=== PATIENT | female | born 1945 | race Caucasian/White ===

== ENCOUNTER 2017-03-17 05:41 | Observation (INO) ==
--- NOTE | 2017-03-17 06:01 | Emergency Department Note ---
Disposition Clinical Impression: Hypoglycemia, Dehydration Disposition: Admitted As Inpatient Condition: Good Referrals: Anthony Kim MD [Primary Care Provider] - Forms: Work/School Release, ED Satisfaction Letter Time of Disposition: 07:42 General Adult HPI - General Chief complaint: ED General Medical Stated complaint: Hypoglycemia Time Seen by Provider: 03/17/17 05:50 Source: EMS Mode of arrival: EMS Limitations: physical limitation Nursing Notes Reviewed: Yes Vital Signs Reviewed: Yes - History of Present Illness HPI Narrative: 71-year-old female transported the emergency department with a history that she was having some left-sided weakness and lethargy. Apparently they checked her blood sugar and it was 177. When EMS got there her blood sugar was 43. They gave her an amp of D50. Within 5 minutes she was fully awake alert oriented with no motor deficits. She has no complaints at this time. She states she feels fine. Onset (ago): Just [employer] Pain Scale: 0 Associated symptoms: Reports: denies other symptoms Treatments Prior to Arrival: other (D50 W) - Related Data Home Medications Medication Instructions Recorded Confirmed Acetaminophen [Tylenol] 325 mg PO Q6HR PRN 05/05/16 03/17/17 Allopurinol [Zyloprim] 150 mg PO DAILY 05/05/16 03/17/17 Aspirin [Lo-Dose Aspirin EC] 81 mg PO QAM 05/05/16 03/17/17 Atorvastatin [Lipitor] 10 mg PO HS 05/05/16 03/17/17 Baclofen [Lioresal] 10 mg PO TID PRN 05/05/16 03/17/17 Carbidopa/Levodopa ER 50/200 1 each PO BID 05/05/16 03/17/17 [Sinemet ER 50-200 TAB] Cyanocobalamin (Vitamin B-12) 1,000 mcg SL QAM 05/05/16 03/17/17 [Vitamin B-12] Fenofibrate 200 mg PO QAM 05/05/16 03/17/17 Furosemide [Lasix] 40 mg PO BID 05/05/16 03/17/17 HYDROcodone/Acet 5/325 mg [[place] 1 tab PO BID PRN 05/05/16 03/17/17 5-325 mg] Insulin ASPART [Novolog] 0 unit SQ TIDWM 05/05/16 03/17/17 Insulin DETEMIR [Levemir] 50 unit SQ BID 05/05/16 03/17/17 Loratadine [Claritin] 10 mg PO QAM 05/05/16 03/17/17 Losartan Potassium [Cozaar] 25 mg PO DAILY 05/05/16 03/17/17 Magnesium Oxide [Magnesium] 400 mg PO BID 05/05/16 03/17/17 Ondansetron HCl 4 mg PO Q4H PRN 05/05/16 03/17/17 Pantoprazole Sodium 40 mg PO BID 05/05/16 03/17/17 Renal Vitamin [Renal Caps Softgel] 1 mg PO DAILY 05/05/16 03/17/17 TraZODone 50 mg PO HS 05/05/16 03/17/17 Venlafaxine HCl [Effexor Xr] 75 mg PO HS 05/05/16 03/17/17 hydrOXYzine pamoate [HydrOXYzine 25 mg PO Q6H 05/05/16 03/17/17 Pamoate] Dextran 70/Hypromellose 1 drop OP BID 03/17/17 03/17/17 [Artificial Tears Eye Drops] Insulin Regular, Human [Novolin R] 6 unit SQ 03/17/17 Metoprolol [Lopressor] 25 mg PO DAILY 03/17/17 03/17/17 Oxymetazoline HCl [Nasal [place]] 1 spray NS QID 03/17/17 03/17/17 Psyllium Husk [Metamucil] 0.52 gm PO BID 03/17/17 03/17/17 Sennosides/Docusate Sodium 2 each PO BID 03/17/17 03/17/17 [Senna-S Tablet] Allergies Allergy/AdvReac Type Severity Reaction Status Date / Time aminophylline Allergy See Verified 05/05/16 15:49 Comments Benzoate Analogues Allergy See Verified 05/05/16 15:49 Comments clavulanic acid Allergy See Verified 05/05/16 15:49 Comments colistin [From Coly-Mycin S] Allergy See Verified 05/05/16 15:54 Comments disulfiram [From Antabuse] Allergy See Verified 05/05/16 15:54 Comments Ethanolamine Allergy See Verified 05/05/16 15:49 Comments ethylenediamine Allergy See Verified 05/05/16 15:54 Comments hydrocortisone Allergy See Verified 05/05/16 15:54 [From Coly-Mycin S] Comments [place] encephalitis vaccine Allergy See Verified 05/05/16 15:54 [From Je-Vax] Comments Medrysone [From Liquifilm] Allergy See Verified 05/05/16 15:54 Comments Merbromin Allergy See Verified 05/05/16 15:54 Comments Mercury (Elemental) Allergy See Verified 05/05/16 15:54 Comments Neomycin [From Coly-Mycin S] Allergy See Verified 05/05/16 15:54 Comments oxymetazoline Allergy See Verified 05/05/16 15:54 [From Kev-Synephrine Comments (phenylephrine)] phenylephrine Allergy See Verified 05/05/16 15:54 [From Kev-Synephrine Comments (phenylephrine)] Piperazine Allergy See Verified 05/05/16 15:49 Comments piroxicam Allergy See Verified 05/05/16 15:54 Comments Tetanus Vaccines and Toxoid Allergy See Verified 05/05/16 15:54 [Tetanus Vaccines & Toxoid] Comments thimerosal Allergy See Verified 05/05/16 15:49 Comments Thonzonium Allergy See Verified 05/05/16 15:54 [From Coly-Mycin S] Comments Triethylenemelamine Allergy See Verified 05/05/16 15:54 Comments Amoxicillin AdvReac Abdominal Verified 04/24/15 09:44 Pain diphenhydramine AdvReac Itching Verified 01/11/16 22:42 [From Benadryl] naproxen AdvReac Abdominal Verified 04/24/15 09:44 Pain sulfamethoxazole AdvReac Abdominal Verified 04/24/15 09:44 [From Bactrim] Pain trimethoprim [From Bactrim] AdvReac Abdominal Verified 04/24/15 09:44 Pain All systems ED: reviewed and negative except as stated. Constitutional: Denies: fever, chills Eyes: Denies: eye discharge, vision change ENT ED: Denies: ear pain, throat pain Cardiovascular: Denies: chest pain Respiratory: Denies: cough, dyspnea Gastrointestinal: Denies: abdominal pain, nausea, vomiting Genitourinary: Denies: urgency, dysuria, frequency Neurological: Reports: weakness, confusion. Denies: headache Past Medical History - Past Medical History Medical history: Reports: arthritis, atrial fibrillation, CHF, COPD, diabetes, hypertension, TIA, other Surgical history: Reports: Psychiatric history: Reports: no psych history - Social History Smoking Status: Former smoker Smokeless Tobacco Status: No Alcohol use: Reports: none Drug use: Reports: none, other Physical Exam - General Limitations: physical limitation General appearance: alert, in no apparent distress - Head Head exam: atraumatic, normocephalic - Eye Eye exam: Present: PERRL, EOMI. Absent: scleral icterus, conjunctival injection - ENT ENT exam: normal oropharynx, mucous membranes moist - Neck Neck exam: Present: normal inspection, full ROM, trachea midline. Absent: tenderness, lymphadenopathy - Respiratory Respiratory exam: Present: normal lung sounds bilaterally. Absent: respiratory distress, wheezes - Cardiovascular Cardiovascular exam: Present: regular rate, normal rhythm, normal heart sounds - Abdominal Exam Abdominal exam: Present: soft, Non-Tender, normal bowel sounds. Absent: organomegaly, mass - Extremities Exam Extremities exam: Present: normal inspection, full ROM, normal capillary refill - Back Exam Back exam: Absent: CVA tenderness (R), CVA tenderness (L) - Neurological Exam Neurological exam: Present: alert, oriented X3, CN II-XII intact, reflexes normal. Absent: motor sensory deficit - Psychiatric Psychiatric exam: Present: normal affect, normal mood - Skin Skin exam: Present: warm, dry, intact, normal color Course - Reevaluation(s) Reevaluation #1: Repeat blood sugars 31. She will be given another amp of dextrose. Since she is dehydrated and she is dropped her blood sugar twice I am going to have her observed. I suspect she is not eating and drinking well. I spoke with Dr. Kim. He is accepted her for observation admission. Time: 07:40 Vital Signs Temperature 98.1 F 03/17/17 05:44 Pulse Rate 65 03/17/17 05:44 Respiratory Rate 16 03/17/17 05:44 Blood Pressure 126/68 03/17/17 05:44 O2 Sat by Pulse Oximetry 98 03/17/17 05:44 Temperature 98.1 F 03/17/17 05:47 Pulse Rate 65 03/17/17 05:47 Respiratory Rate 16 03/17/17 05:47 Blood Pressure 126/68 03/17/17 05:47 O2 Sat by Pulse Oximetry 98 03/17/17 05:47 Oxygen Delivery Oxygen Delivery Room Air Medical Decision Making - Lab Data Lab results reviewed: Yes I reviewed the patient's lab results. Result diagrams: 03/17/17 06:17 03/17/17 06:17 Lab Results 03/17/17 03/17/17 03/17/17 Range/Units 05:46 06:17 06:17 WBC 5.4 (4.3-11.1) K/mcL RBC 3.39 L (3.82-4.97) M/mcL Hgb 11.3 L (11.5-15.4) g/dL Hct 33.4 L (35.3-44.9) % MCV 98.5 (83.0-100.0) fL MCH 33.3 (28.0-33.3) pg MCHC 33.8 (31.6-35.5) g/dL RDW 13.8 (11.5-14.5) % Plt Count 251 (140-400) K/mcL MPV 9.9 (9.4-12.4) fL Immature Gran % 0.4 (0-4) % Seg Neutrophils % 60.0 % Lymphocytes % 29.0 % Monocytes % 7.9 % Eosinophils % 2.0 % Basophils % 0.7 % Neutrophils # 3.2 (1.6-8.9) K/mcL Lymphocytes # 1.6 (0.6-4.6) K/mcL Monocytes # 0.4 (0.0-1.3) K/mcL Eosinophils # 0.1 (0.0-0.6) K/mcL Basophils # 0.0 (0.0-0.2) K/mcL Sodium 137 (136-145) mEq/L Potassium 3.4 L (3.5-4.5) mEq/L Chloride 95 L (98-109) mEq/L Carbon Dioxide 31 H (19-29) mEq/L BUN 62 H (7-20) mg/dL Creatinine 1.74 H (0.57-1.11) mg/dL Est GFR ( Amer) 35 L (> 60) Est GFR (Non-Af Amer) 29 L (> 60) BUN/Creatinine Ratio 36 H (6-26) Glucose 78 (70-99) mg/dL POC Glucose 91 H (58-89) Calculated Osmolality 300 (280-300) Calcium 9.9 (8.6-10.8) mg/dL Urine Color (Yellow) Urine Clarity (Clear) Urine pH (5.0-8.0) pH Units Ur Specific [place] (1.010-1.025) Urine Protein (Neg-Trace) mg/dL Urine Glucose (UA) (Normal) mg/dL Urine Ketones (Negative) mg/dL Urine Blood (Negative) Urine Nitrite (Negative) Urine Bilirubin (Negative) Urine Urobilinogen (Normal) mg/dL Ur Leukocyte Esterase (Negative) Ur Culture Indicated? (NO) 03/17/17 Range/Units 06:41 WBC (4.3-11.1) K/mcL RBC (3.82-4.97) M/mcL Hgb (11.5-15.4) g/dL Hct (35.3-44.9) % MCV (83.0-100.0) fL MCH (28.0-33.3) pg MCHC (31.6-35.5) g/dL RDW (11.5-14.5) % Plt Count (140-400) K/mcL MPV (9.4-12.4) fL Immature Gran % (0-4) % Seg Neutrophils % % Lymphocytes % % Monocytes % % Eosinophils % % Basophils % % Neutrophils # (1.6-8.9) K/mcL Lymphocytes # (0.6-4.6) K/mcL Monocytes # (0.0-1.3) K/mcL Eosinophils # (0.0-0.6) K/mcL Basophils # (0.0-0.2) K/mcL Sodium (136-145) mEq/L Potassium (3.5-4.5) mEq/L Chloride (98-109) mEq/L Carbon Dioxide (19-29) mEq/L BUN (7-20) mg/dL Creatinine (0.57-1.11) mg/dL Est GFR ( Amer) (> 60) Est GFR (Non-Af Amer) (> 60) BUN/Creatinine Ratio (6-26) Glucose (70-99) mg/dL POC Glucose (58-89) Calculated Osmolality (280-300) Calcium (8.6-10.8) mg/dL Urine Color Light Yellow (Yellow) Urine Clarity Clear (Clear) Urine pH 5.5 (5.0-8.0) pH Units Ur Specific [place] 1.010 (1.010-1.025) Urine Protein Negative (Neg-Trace) mg/dL Urine Glucose (UA) Normal (Normal) mg/dL Urine Ketones Negative (Negative) mg/dL Urine Blood Negative (Negative) Urine Nitrite Negative (Negative) Urine Bilirubin Negative (Negative) Urine Urobilinogen Normal (Normal) mg/dL Ur Leukocyte Esterase Negative (Negative) Ur Culture Indicated? NO (NO)
[2017-03-17 06:23] LABS: Basophils % 0.7 %; Eosinophils # 0.1 K/mcL (0.0-0.6); Hematocrit 33.4 % (35.3-44.9); Hemoglobin 11.3 g/dL (11.5-15.4); Immature Granulocytes % 0.4 % (0-4); Lymphocytes # 1.6 K/mcL (0.6-4.6); Mean Corpuscular HGB Conc 33.8 g/dL (31.6-35.5); Mean Corpuscular Hemoglobin 33.3 pg (28.0-33.3); Mean Corpuscular Volume 98.5 fL (83.0-100.0); Mean Platelet Volume 9.9 fL (9.4-12.4); Monocytes # 0.4 K/mcL (0.0-1.3); Monocytes % 7.9 %; Neutrophils # 3.2 K/mcL (1.6-8.9); Platelet Count 251 K/mcL (140-400); Red Blood Count 3.39 M/mcL (3.82-4.97); Red Cell Distribution Width 13.8 % (11.5-14.5)
[2017-03-17 06:38] LABS: Calcium 9.9 mg/dL (8.6-10.8); Potassium 3.4 mEq/L (3.5-4.5)
[2017-03-17] MEDS ORDERED: 0.9 % Sodium Chloride 1,000 ML IVC ONE (06:45)
[2017-03-17 07:18] LABS: Bilirubin,Urine Negative (Negative); Blood,Urine Negative (Negative); Clarity,Urine Clear (Clear); Glucose,Urine (UA) Normal (Normal); Ketones,Urine Negative (Negative); Leukocyte Esterase,Urine Negative (Negative); Nitrite,Urine Negative (Negative); PH,Urine 5.5 pH Units (5.0-8.0); Protein,Urine Negative (Neg-Trace); Urobilinogen,Urine Normal (Normal)
[2017-03-17 07:26] LABS: Color,Urine Light Yellow (Yellow)
[2017-03-17] MEDS ORDERED: *HR* Dextrose 50 % in Water (Vial) 50 ML VIAL IVP ONE (07:38)
[2017-03-17] MEDS ORDERED: Naloxone 0.4 MG/ML INJ IVP PRN (08:37)
[2017-03-17] MEDS ORDERED: Dextrose Gel 15 GM PO PRN ×2 (08:37)
[2017-03-17] MEDS ORDERED: Baclofen 10 MG TABLET PO PRN (08:37)
[2017-03-17] MEDS ORDERED: D5% in Water 1,000 ML IVC PRN (08:37)
[2017-03-17] MEDS ORDERED: *HR* Dextrose 50 % in Water (Syg) 50 ML SYRINGE IVP PRN (08:37)
[2017-03-17] MEDS ORDERED: Acetaminophen 325 MG TABLET PO PRN (08:37)
[2017-03-17] MEDS ORDERED: 0.9 % Sodium Chloride 1,000 ML IVC SCH (08:37)
[2017-03-17] MEDS ORDERED: hydrOXYzine pamoate 25 MG CAPSULE PO SCH (08:37)
[2017-03-17] MEDS ORDERED: Ondansetron ODT 4 MG TAB.RAPDIS PO PRN (08:37)
[2017-03-17] MEDS ORDERED: *HR* HYDROcodone/Acet 5/325 mg TABLET PO PRN (08:37)
[2017-03-17] MEDS ORDERED: Loratadine 10 MG TABLET PO SCH (09:00)
[2017-03-17] MEDS: Renal Vitamin 1 MG CAPSULE PO SCH (10:09)
[2017-03-17] MEDS: Cyanocobalamin (B-12) 1,000 MCG TABLET PO SCH (10:09)
[2017-03-17] MEDS: Aspirin Enteric Coated 81 MG Tablet PO SCH (10:09)
[2017-03-17] MEDS: Magnesium Oxide 400 MG TABLET PO SCH ×2 (10:09→22:45)
[2017-03-17] MEDS: Fenofibrate 54 MG TABLET PO SCH (10:09)
[2017-03-17] MEDS: Sennosides/Docusate Sodium TABLET PO SCH ×2 (10:12→22:44)
[2017-03-17] MEDS: Psyllium 1 PACKET POWD.PACK PO SCH ×2 (10:12→22:45)
[2017-03-17] MEDS: Carbidopa/Levodopa ER 50/200 TABLET PO SCH ×2 (10:12→22:45)
[2017-03-17] MEDS: Oxymetazoline Nasal SPRAY BOTTLE NS SCH ×4 (10:14→22:45)
[2017-03-17] MEDS: Artificial Tears SOLN 15 ML BOTTLE OP SCH ×2 (10:14→22:46)
[2017-03-17] MEDS ORDERED: 0.45 % Sodium Chloride w/KCl 20 MEQ/1,000 ML MLS IVC SCH ×2 (11:00→15:13)
[2017-03-17] MEDS: Insulin LISPRO 300 UNITS/3 ML VIAL SQ SCH ×2 (12:33→17:10)
--- NOTE | 2017-03-17 15:04 | Internal Med History&Physical ---
Date of Encounter: 03/17/17 Time of Encounter: 14:30 Assessment and Plan (1) Hypoglycemia Current visit: Yes Status: Acute Her Levemir has been held. Accu-Cheks will be checked before meals and at bedtime with sliding scale coverage given. (2) Dehydration Current visit: Yes Status: Acute She has been started on IV fluids. Repeat labs will be done in a.m. (3) CKD (chronic kidney disease) stage 3, GFR 30-59 ml/min Current visit: Yes Status: Chronic We will give IV fluids and check labs in a.m. Internal Medicine - H&P: HPI Chief complaint: Hypoglycemia, lethargy Admitted From: Long-term Nursing Facility Plans for Post Hospital Care: [facility] [employer] Care History of present illness: Ms. Barron is a 71 year old female who was sent to the emergency room after correction staff reported her to have left-sided weakness and lethargy. Emergency room reports states her blood was checked at the SNF and was reported to be 177. When EMS arrived blood sugar was rechecked and found to be 43. She was given an amp of D50 and reportedly had full recovery of alertness with no motor deficits after 5 minutes. She was evaluated in emergency room and blood sugar had decreased to 32. She was admitted to [facility] floor for ongoing care needs. She states she was diagnosed with DM 2 approximately 12 years ago. Her most recent hemoglobin A1c was 6.3% on 08/31/2016. She reports blood sugars are checked regularly at the correction. She reports her food intake is erratic at the correction. Her endocrine history is pertinent otherwise for hyperlipidemia. She denies thyroid disease. Past Med Surg Social Fam HX - Past Medical History Medical history: arthritis, atrial fibrillation, CHF, COPD, diabetes, hypertension, TIA, other Psychiatric history: no psych history - Past Surgical History Surgical History: - Social History Smoking Status: Former smoker Smokeless Tobacco Status: No Alcohol use: none Drug use: none, other Internal Medicine - H&P: Meds Acetaminophen [Tylenol] 325 mg PO Q6HR PRN 05/05/16 [History] Allopurinol [Zyloprim] 150 mg PO DAILY 05/05/16 [History] Aspirin [Lo-Dose Aspirin EC] 81 mg PO QAM 05/05/16 [History] Atorvastatin [Lipitor] 10 mg PO HS 05/05/16 [History] Baclofen [Lioresal] 10 mg PO TID PRN 05/05/16 [History] Carbidopa/Levodopa ER 50/200 [Sinemet ER 50-200 TAB] 1 each PO BID 05/05/16 [ History] Cyanocobalamin (Vitamin B-12) [Vitamin B-12] 1,000 mcg SL QAM 05/05/16 [History] Fenofibrate 200 mg PO QAM 05/05/16 [History] Furosemide [Lasix] 40 mg PO BID 05/05/16 [History] HYDROcodone/Acet 5/325 mg [[place] 5-325 mg] 1 tab PO BID PRN 05/05/16 [History] Insulin ASPART [Novolog] 0 unit SQ TIDWM 05/05/16 [History] Insulin DETEMIR [Levemir] 50 unit SQ BID 05/05/16 [History] Loratadine [Claritin] 10 mg PO QAM 05/05/16 [History] Losartan Potassium [Cozaar] 25 mg PO DAILY 05/05/16 [History] Magnesium Oxide [Magnesium] 400 mg PO BID 05/05/16 [History] Ondansetron HCl 4 mg PO Q4H PRN 05/05/16 [History] Pantoprazole Sodium 40 mg PO BID 05/05/16 [History] Renal Vitamin [Renal Caps Softgel] 1 mg PO DAILY 05/05/16 [History] TraZODone 50 mg PO HS 05/05/16 [History] Venlafaxine HCl [Effexor Xr] 75 mg PO HS 05/05/16 [History] hydrOXYzine pamoate [HydrOXYzine Pamoate] 25 mg PO Q6H 05/05/16 [History] Dextran 70/Hypromellose [Artificial Tears Eye Drops] 1 drop OP BID 03/17/17 [ History] Insulin Regular, Human [Novolin R] 6 unit SQ 03/17/17 [History] Metoprolol [Lopressor] 25 mg PO DAILY 03/17/17 [History] Oxymetazoline HCl [Nasal [place]] 1 spray NS QID 03/17/17 [History] Psyllium Husk [Metamucil] 0.52 gm PO BID 03/17/17 [History] Sennosides/Docusate Sodium [Senna-S Tablet] 2 each PO BID 03/17/17 [History] Allergies aminophylline Allergy (Verified 05/05/16 15:49) See Comments unknown Benzoate Analogues Allergy (Verified 05/05/16 15:49) See Comments unknown clavulanic acid Allergy (Verified 05/05/16 15:49) See Comments unknown colistin [From Coly-Mycin S] Allergy (Verified 05/05/16 15:54) See Comments disulfiram [From Antabuse] Allergy (Verified 05/05/16 15:54) See Comments Ethanolamine Allergy (Verified 05/05/16 15:49) See Comments unknown ethylenediamine Allergy (Verified 05/05/16 15:54) See Comments hydrocortisone [From Coly-Mycin S] Allergy (Verified 05/05/16 15:54) See Comments [place] encephalitis vaccine [From Je-Vax] Allergy (Verified 05/05/16 15:54) See Comments Medrysone [From Liquifilm] Allergy (Verified 05/05/16 15:54) See Comments Merbromin Allergy (Verified 05/05/16 15:54) See Comments Mercury (Elemental) Allergy (Verified 05/05/16 15:54) See Comments unknown Neomycin [From Coly-Mycin S] Allergy (Verified 05/05/16 15:54) See Comments oxymetazoline [From Kev-Synephrine (phenylephrine)] Allergy (Verified 05/05/16 15:54) See Comments phenylephrine [From Kev-Synephrine (phenylephrine)] Allergy (Verified 05/05/16 15:54) See Comments Piperazine Allergy (Verified 05/05/16 15:49) See Comments unknown piroxicam Allergy (Verified 05/05/16 15:54) See Comments Tetanus Vaccines and Toxoid [Tetanus Vaccines & Toxoid] Allergy (Verified 15:54) See Comments thimerosal Allergy (Verified 05/05/16 15:49) See Comments unknown Thonzonium [From Coly-Mycin S] Allergy (Verified 05/05/16 15:54) See Comments Triethylenemelamine Allergy (Verified 05/05/16 15:54) See Comments Amoxicillin Adverse Reaction (Verified 04/24/15 09:44) Abdominal Pain diphenhydramine [From Benadryl] Adverse Reaction (Verified 01/11/16 22:42) Itching naproxen Adverse Reaction (Verified 04/24/15 09:44) Abdominal Pain sulfamethoxazole [From Bactrim] Adverse Reaction (Verified 04/24/15 09:44) Abdominal Pain trimethoprim [From Bactrim] Adverse Reaction (Verified 04/24/15 09:44) Abdominal Pain All Systems PM: A 10-system review of systems was performed and is negative for pertinent findings except as documented above in the HPI. Review of systems: Gen.: He states her weight has been stable the past few months Cardiovascular: She has a history of hypertension and thinks she has had heart failure in the past. She is uncertain if she had a DVT many years ago. She denies CA or pulmonary embolism Respiratory: She quit smoking 35 years ago and has no known chronic lung disease. She states she had a "right lung nodule" seen in the past. She has ANGELINA and wears BiPAP at bedtime GI: She has diagnosis of GERD. She has had cholecystectomy. 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 She has chronic kidney disease and follows with Dr. Shanks Neurologic: She claims she was told she had a stroke from a past head CT report. She was unaware of its time of occurrence. She denies neurologic deficits. She denies seizures. She has diagnoses of Parkinson's disease and restless leg syndrome. She ambulates in the correction with a walker. Endocrine: As per history of present illness Hematology/oncology: She denies blood disorders, cancers or anemia Psychiatric: She has depression but denies anxiety other mental health issues [place] skeletal: She has history of gout and minimal arthritis. She denies other bone joint or muscle disorders. - Constitutional Vitals: Temp Pulse Resp BP Pulse Ox 97.9 F 71 18 109/71 99 03/17/17 10:16 03/17/17 10:16 03/17/17 10:16 03/17/17 10:16 03/17/17 10:16 Exam: Gen.: She is a well-developed overweight female lying in bed who appears in no acute distress HEENT: Head is atraumatic and normocephalic. Eyes: EOMI. There is no scleral icterus. Mouth: Mucosa is moist. Neck: Supple and nontender. There is no thyromegaly or adenopathy noted. Heart: Regular without murmurs gallops or ectopics Lungs: No wheezes or crackles are heard. Abdomen: Soft and nontender. No masses or guarding are noted. Extremities: There is no cyanosis edema or clubbing noted. Dorsalis pedis and posttibial pulses are 1-2 over 2 bilaterally. Neurologic: Mental status: She is talkative and a good historian. Cranial nerves: Smile is symmetric. Forehead wrinkles bilaterally. Tongue protrudes midline. EOMI. Motor: There is no pronator drift. Cerebellar: Finger to nose is intact bilaterally. Skin: Warm and dry Internal Med - H&P Results - Labs CBC & Chem 7: 03/17/17 06:17 03/17/17 06:17
[2017-03-17] MEDS: hydrOXYzine pamoate 25 MG CAPSULE PO SCH ×2 (17:12→22:50)
[2017-03-17] MEDS ORDERED: Venlafaxine XR (24 HR) 37.5 MG CAP.ER.24H PO SCH (21:00)
[2017-03-17] MEDS ORDERED: traZODone 50 MG TABLET PO SCH (21:00)
[2017-03-18] MEDS: Insulin LISPRO 300 UNITS/3 ML VIAL SQ SCH ×2 (00:23→07:28)
[2017-03-18 06:22] VITALS: BP 124/77
[2017-03-18] MEDS: hydrOXYzine pamoate 25 MG CAPSULE PO SCH (07:28)
[2017-03-18] MEDS: Magnesium Oxide 400 MG TABLET PO SCH (07:51)
[2017-03-18] MEDS: Psyllium 1 PACKET POWD.PACK PO SCH (07:51)
[2017-03-18] MEDS: Fenofibrate 54 MG TABLET PO SCH (07:52)
[2017-03-18] MEDS: Carbidopa/Levodopa ER 50/200 TABLET PO SCH (07:52)
[2017-03-18] MEDS: Cyanocobalamin (B-12) 1,000 MCG TABLET PO SCH (07:52)
[2017-03-18] MEDS: Renal Vitamin 1 MG CAPSULE PO SCH (07:52)
[2017-03-18] MEDS: Aspirin Enteric Coated 81 MG Tablet PO SCH (07:52)
[2017-03-18] MEDS: Sennosides/Docusate Sodium TABLET PO SCH (07:52)
[2017-03-18] MEDS: Oxymetazoline Nasal SPRAY BOTTLE NS SCH (07:56)
[2017-03-18] MEDS: Artificial Tears SOLN 15 ML BOTTLE OP SCH (07:57)
[2017-03-18 09:12] LABS: Calcium 9.9 mg/dL (8.6-10.8); Uric Acid 5.5 mg/dL (2.6-6.0)
[2017-03-18 09:34] LABS: Thyroid Stimulating Hormone 10.043 mcIU/mL (0.350-4.840)
--- NOTE | 2017-03-18 10:02 | Discharge Summary ---
Date of Encounter: 03/18/17 Time of Encounter: 09:50 - Discharge Diagnosis (1) Hypoglycemia Priority: Primary Status: Resolved (2) Dehydration Priority: Secondary Status: Acute (3) CKD (chronic kidney disease) stage 3, GFR 30-59 ml/min Priority: Secondary Status: Chronic (4) Hypothyroid Priority: Secondary Status: Acute Qualifiers: Hypothyroidism type: unspecified Qualified Code(s): E03.9 - Hypothyroidism , unspecified - Discharge Medications Prescriptions: Levothyroxine [Synthroid] 100 mcg PO 0630 365 Days Home Medications: Acetaminophen [Tylenol] 325 mg PO Q6HR PRN 05/05/16 [History] Allopurinol [Zyloprim] 150 mg PO DAILY 05/05/16 [History] Aspirin [Lo-Dose Aspirin EC] 81 mg PO QAM 05/05/16 [History] Atorvastatin [Lipitor] 10 mg PO HS 05/05/16 [History] Baclofen [Lioresal] 10 mg PO TID PRN 05/05/16 [History] Carbidopa/Levodopa ER 50/200 [Sinemet ER 50-200 Tab] 1 each PO BID 05/05/16 [ History] Cyanocobalamin (Vitamin B-12) [Vitamin B-12] 1,000 mcg SL QAM 05/05/16 [History] Fenofibrate 200 mg PO QAM 05/05/16 [History] HYDROcodone/Acet 5/325 mg [[place] 5-325 mg] 1 tab PO BID PRN 05/05/16 [History] Insulin ASPART [Novolog] 0 unit SQ TIDWM 05/05/16 [History] Losartan Potassium [Cozaar] 25 mg PO DAILY 05/05/16 [History] Magnesium Oxide [Magnesium] 400 mg PO BID 05/05/16 [History] Ondansetron HCl 4 mg PO Q4H PRN 05/05/16 [History] Renal Vitamin [Renal Caps Softgel] 1 mg PO DAILY 05/05/16 [History] TraZODone 50 mg PO HS 05/05/16 [History] Venlafaxine HCl [Effexor Xr] 75 mg PO HS 05/05/16 [History] hydrOXYzine pamoate [HydrOXYzine Pamoate] 25 mg PO Q6H 05/05/16 [History] Dextran 70/Hypromellose [Artificial Tears Eye Drops] 1 drop OP BID 03/17/17 [ History] Insulin Regular, Human [Novolin R] 6 unit SQ 03/17/17 [History] Metoprolol [Lopressor] 25 mg PO DAILY 03/17/17 [History] Psyllium Husk [Metamucil] 0.52 gm PO BID 03/17/17 [History] Sennosides/Docusate Sodium [Senna-S Tablet] 2 each PO BID 03/17/17 [History] Furosemide [Lasix] 40 mg PO DAILY #0 03/18/17 [Rx] Insulin DETEMIR [Levemir] 10 unit SQ BID #0 03/18/17 [Rx] Levothyroxine [Synthroid] 100 mcg PO 0630 365 Days 03/18/17 [Rx] Loratadine [Claritin] 10 mg PO QAM PRN #0 03/18/17 [Rx] Oxymetazoline HCl [Nasal [place]] 1 spray NS QID PRN #0 03/18/17 [Rx] Pantoprazole Sodium 40 mg PO DAILY #0 03/18/17 [Rx] Allergies/Adverse Reactions: Allergies aminophylline Allergy (Verified 05/05/16 15:49) See Comments unknown Benzoate Analogues Allergy (Verified 05/05/16 15:49) See Comments unknown clavulanic acid Allergy (Verified 05/05/16 15:49) See Comments unknown colistin [From Coly-Mycin S] Allergy (Verified 05/05/16 15:54) See Comments disulfiram [From Antabuse] Allergy (Verified 05/05/16 15:54) See Comments Ethanolamine Allergy (Verified 05/05/16 15:49) See Comments unknown ethylenediamine Allergy (Verified 05/05/16 15:54) See Comments hydrocortisone [From Coly-Mycin S] Allergy (Verified 05/05/16 15:54) See Comments Croatian encephalitis vaccine [From Je-Vax] Allergy (Verified 05/05/16 15:54) See Comments Medrysone [From Liquifilm] Allergy (Verified 05/05/16 15:54) See Comments Merbromin Allergy (Verified 05/05/16 15:54) See Comments Mercury (Elemental) Allergy (Verified 05/05/16 15:54) See Comments unknown Neomycin [From Coly-Mycin S] Allergy (Verified 05/05/16 15:54) See Comments oxymetazoline [From Kev-Synephrine (phenylephrine)] Allergy (Verified 05/05/16 15:54) See Comments phenylephrine [From Kev-Synephrine (phenylephrine)] Allergy (Verified 05/05/16 15:54) See Comments Piperazine Allergy (Verified 05/05/16 15:49) See Comments unknown piroxicam Allergy (Verified 05/05/16 15:54) See Comments Tetanus Vaccines and Toxoid [Tetanus Vaccines & Toxoid] Allergy (Verified 15:54) See Comments thimerosal Allergy (Verified 05/05/16 15:49) See Comments unknown Thonzonium [From Coly-Mycin S] Allergy (Verified 05/05/16 15:54) See Comments Triethylenemelamine Allergy (Verified 05/05/16 15:54) See Comments Amoxicillin Adverse Reaction (Verified 04/24/15 09:44) Abdominal Pain diphenhydramine [From Benadryl] Adverse Reaction (Verified 01/11/16 22:42) Itching naproxen Adverse Reaction (Verified 04/24/15 09:44) Abdominal Pain sulfamethoxazole [From Bactrim] Adverse Reaction (Verified 04/24/15 09:44) Abdominal Pain trimethoprim [From Bactrim] Adverse Reaction (Verified 04/24/15 09:44) Abdominal Pain Date of admission: 03/17/17 08:04 Primary care physician: Anthony Joyner M.D. - Patient Status Disposition: Transfer [facility] Condition: Good Functional capacity at discharge: uses cane/walker Overall status at discharge: patient is progressing back to baseline - Discharge Instructions - Diet and Activity Activity: resume usual activities as tolerated Diet: diabetic diet Hospital course: Ms. Barron is a 71 year old female who was sent to the emergency room after correction staff reported her to have left-sided weakness and lethargy. Emergency room reports states her blood was checked at the [facility] and was reported to be 177. When EMS arrived blood sugar was rechecked and found to be 43. She was given an amp of D50 and reportedly had full recovery of alertness with no motor deficits after 5 minutes. She was evaluated in emergency room and blood sugar had decreased to 32. She was admitted to [facility] for ongoing care needs. Initial orders were written by the emergency room physician. I saw her on March 17 and performed the history and physical. Her Levemir was held and she was given IV fluids. Her blood sugars return to an acceptable range. She will be restarted on Levemir at a lower dose of 15 units twice a day. Accu-Cheks with SSI will be done at the correction. Her BUN and creatinine improved to 43 and 1.38 with IV fluids. Her Lasix dose will be reduced on return to the correction. Her PCP can monitor her renal indices. TSH returned elevated at 10.043. She was started on Synthroid 100 g daily. On March 18 she felt back to her baseline and was stable for discharge to [facility]. She will follow with Dr. Joyner there. - Time Spent with Patient Total time spent providing and/or coordinating discharge services: - Constitutional Vitals: Temp Pulse Resp BP Pulse Ox 97.6 F 72 20 124/77 98 03/18/17 06:19 03/18/17 06:19 03/18/17 06:19 03/18/17 06:19 03/18/17 06:19
--- NOTE | 2017-03-18 10:16 | Physician Discharge Referral ---
ExtendedCare Referral Info Transfer To: [facility] Provider in Charge: Julio Provider in Charge after Transfer: PCP (Anthony Joyner M.D.) - Diagnosis (1) Hypoglycemia Priority: Primary Status: Resolved (2) Dehydration Priority: Secondary Status: Acute (3) CKD (chronic kidney disease) stage 3, GFR 30-59 ml/min Priority: Secondary Status: Chronic (4) Hypothyroid Priority: Secondary Status: Acute Prognosis: Fair Aware of Diagnosis: Patient, Family Aware of Prognosis: Patient, Family - Transfer Medications Prescriptions: Levothyroxine [Synthroid] 100 mcg PO 0630 365 Days Home Medications: Acetaminophen [Tylenol] 325 mg PO Q6HR PRN 05/05/16 [History] Allopurinol [Zyloprim] 150 mg PO DAILY 05/05/16 [History] Aspirin [Lo-Dose Aspirin EC] 81 mg PO QAM 05/05/16 [History] Atorvastatin [Lipitor] 10 mg PO HS 05/05/16 [History] Baclofen [Lioresal] 10 mg PO TID PRN 05/05/16 [History] Carbidopa/Levodopa ER 50/200 [Sinemet ER 50-200 Tab] 1 each PO BID 05/05/16 [ History] Cyanocobalamin (Vitamin B-12) [Vitamin B-12] 1,000 mcg SL QAM 05/05/16 [History] Fenofibrate 200 mg PO QAM 05/05/16 [History] HYDROcodone/Acet 5/325 mg [[place] 5-325 mg] 1 tab PO BID PRN 05/05/16 [History] Insulin ASPART [Novolog] 0 unit SQ TIDWM 05/05/16 [History] Losartan Potassium [Cozaar] 25 mg PO DAILY 05/05/16 [History] Magnesium Oxide [Magnesium] 400 mg PO BID 05/05/16 [History] Ondansetron HCl 4 mg PO Q4H PRN 05/05/16 [History] Renal Vitamin [Renal Caps Softgel] 1 mg PO DAILY 05/05/16 [History] TraZODone 50 mg PO HS 05/05/16 [History] Venlafaxine HCl [Effexor Xr] 75 mg PO HS 05/05/16 [History] hydrOXYzine pamoate [HydrOXYzine Pamoate] 25 mg PO Q6H 05/05/16 [History] Dextran 70/Hypromellose [Artificial Tears Eye Drops] 1 drop OP BID 03/17/17 [ History] Insulin Regular, Human [Novolin R] 6 unit SQ 03/17/17 [History] Metoprolol [Lopressor] 25 mg PO DAILY 03/17/17 [History] Psyllium Husk [Metamucil] 0.52 gm PO BID 03/17/17 [History] Sennosides/Docusate Sodium [Senna-S Tablet] 2 each PO BID 03/17/17 [History] Furosemide [Lasix] 40 mg PO DAILY #0 03/18/17 [Rx] Insulin DETEMIR [Levemir] 10 unit SQ BID #0 03/18/17 [Rx] Levothyroxine [Synthroid] 100 mcg PO 0630 365 Days 03/18/17 [Rx] Loratadine [Claritin] 10 mg PO QAM PRN #0 03/18/17 [Rx] Oxymetazoline HCl [Nasal [place]] 1 spray NS QID PRN #0 03/18/17 [Rx] Pantoprazole Sodium 40 mg PO DAILY #0 03/18/17 [Rx] Allergies/Adverse Reactions: Allergies aminophylline Allergy (Verified 05/05/16 15:49) See Comments unknown Benzoate Analogues Allergy (Verified 05/05/16 15:49) See Comments unknown clavulanic acid Allergy (Verified 05/05/16 15:49) See Comments unknown colistin [From Coly-Mycin S] Allergy (Verified 05/05/16 15:54) See Comments disulfiram [From Antabuse] Allergy (Verified 05/05/16 15:54) See Comments Ethanolamine Allergy (Verified 05/05/16 15:49) See Comments unknown ethylenediamine Allergy (Verified 05/05/16 15:54) See Comments hydrocortisone [From Coly-Mycin S] Allergy (Verified 05/05/16 15:54) See Comments French encephalitis vaccine [From Je-Vax] Allergy (Verified 05/05/16 15:54) See Comments Medrysone [From Liquifilm] Allergy (Verified 05/05/16 15:54) See Comments Merbromin Allergy (Verified 05/05/16 15:54) See Comments Mercury (Elemental) Allergy (Verified 05/05/16 15:54) See Comments unknown Neomycin [From Coly-Mycin S] Allergy (Verified 05/05/16 15:54) See Comments oxymetazoline [From Kev-Synephrine (phenylephrine)] Allergy (Verified 05/05/16 15:54) See Comments phenylephrine [From Kev-Synephrine (phenylephrine)] Allergy (Verified 05/05/16 15:54) See Comments Piperazine Allergy (Verified 05/05/16 15:49) See Comments unknown piroxicam Allergy (Verified 05/05/16 15:54) See Comments Tetanus Vaccines and Toxoid [Tetanus Vaccines & Toxoid] Allergy (Verified 15:54) See Comments thimerosal Allergy (Verified 05/05/16 15:49) See Comments unknown Thonzonium [From Coly-Mycin S] Allergy (Verified 05/05/16 15:54) See Comments Triethylenemelamine Allergy (Verified 05/05/16 15:54) See Comments Amoxicillin Adverse Reaction (Verified 04/24/15 09:44) Abdominal Pain diphenhydramine [From Benadryl] Adverse Reaction (Verified 01/11/16 22:42) Itching naproxen Adverse Reaction (Verified 04/24/15 09:44) Abdominal Pain sulfamethoxazole [From Bactrim] Adverse Reaction (Verified 04/24/15 09:44) Abdominal Pain trimethoprim [From Bactrim] Adverse Reaction (Verified 04/24/15 09:44) Abdominal Pain - Respiratory Orders Smoking Cessation: Smoking cessation has been advised. For more information, call the [place] Tobacco Quit Line at 9-643-GXBR-NOW. - Lab Orders Lab Orders: Other (include drug levels w/frequency) (CBC with differential, BMP , magnesium level in 1 week. Accu-Cheks with SSI before meals and at bedtime.) - Mobility Orders Ambulate - Rehabiliation Orders Rehab Potential: Fair - Diet Orders No Concentrated Sweets CERTIFICATION: I certify that the transfer of the above named patient to an Extended Care Facility is necessary for the continuing treatment of the diagnosis listed. The above information is true and accurate reflection of patient's current condition. Confidential - Redisclosure prohibited without a patient's written consent.
== END 2017-03-18 11:15 ==
LOC: INPPIK 05:41 → EMEROOPIK 05:41 → INPPIK 08:25
PROVIDERS: ADMIT Internal Medicine; ATTEND Internal Medicine

== ENCOUNTER 2017-08-18 08:20 | Inpatient (IN) ==
--- NOTE | 2017-08-18 08:42 | Emergency Department Note ---
Disposition Clinical Impression: Facial cellulitis Disposition: Admitted As Inpatient Condition: Fair Referrals: Anthony Joyner MD [Primary Care Provider] - Forms: ED Satisfaction Letter, Work/School Release Time of Disposition: 11:59 (Julio SMITHTed [facility]) Skin/Abscess/FB HPI Chief complaint: ED General Medical Stated complaint: swelling to right side of face Time Seen by Provider: 08/18/17 08:28 Source: patient Mode of arrival: ambulatory Limitations: physical limitation, age Nursing Notes Reviewed: Yes Vital Signs Reviewed: Yes HPI Narrative: Reportedly had shaved her face yesterday hypnic did now has an area of erythema then this morning when she woke up it was larger more swollen pale he has a pustule just outside the region as result she was sent to the ER to evaluate for possibility of need for IV antibiotics versus by mouth antibiotics admission versus discharge patient herself says her face hurts she denies O blurred vision double vision loss vision chest pain chest pressure palpitations cough cold or flulike symptoms other than the facial irritation she denies any additional complaints Pt Subjective Complaint: abscess/boil Onset (ago): day(s) (2) Tetanus Up to Date: yes Location: face Severity: moderate, severe Severity scale (1-10): 7 Quality: aching Consistency: constant Improves with: none Worsens with: none Associated symptoms: Reports: fever. Denies: chills, rigors, itching, nausea, vomiting, malaise, arthralgias, myalgias, cough, shortness of breath Treatments prior to arrival: attempted to drain pus at home Home Medications Medication Instructions Recorded Confirmed Acetaminophen [Tylenol] 325 mg PO Q6HR PRN 05/05/16 08/18/17 Allopurinol [Zyloprim] 150 mg PO DAILY 05/05/16 08/18/17 Aspirin [Lo-Dose Aspirin EC] 81 mg PO QAM 05/05/16 08/18/17 Atorvastatin [Lipitor] 10 mg PO HS 05/05/16 08/18/17 Baclofen [Lioresal] 10 mg PO TID PRN 05/05/16 08/18/17 Carbidopa/Levodopa ER 50/200 1 each PO TID 05/05/16 08/18/17 [Sinemet ER 50-200 Tab] Cyanocobalamin (Vitamin B-12) 1,000 mcg SL QAM 05/05/16 08/18/17 [Vitamin B-12] Fenofibrate 200 mg PO QAM 05/05/16 08/18/17 HYDROcodone/Acet 5/325 mg [[place] 1 tab PO BID PRN 05/05/16 08/18/17 5-325 mg] Insulin ASPART [Novolog] 0 unit SQ TIDWM 05/05/16 08/18/17 Losartan Potassium [Cozaar] 25 mg PO DAILY 05/05/16 08/18/17 Magnesium Oxide [Magnesium] 500 mg PO BID 05/05/16 08/18/17 Ondansetron HCl 4 mg PO Q4H PRN 05/05/16 08/18/17 Renal Vitamin [Renal Caps Softgel] 1 mg PO DAILY 05/05/16 08/18/17 Venlafaxine HCl [Effexor Xr] 225 mg PO HS 05/05/16 08/18/17 hydrOXYzine pamoate [HydrOXYzine 25 mg PO Q6H 05/05/16 08/18/17 Pamoate] Dextran 70/Hypromellose 1 drop OP BID 03/17/17 08/18/17 [Artificial Tears Eye Drops] Insulin Regular, Human [Novolin R] 6 unit SQ TID 03/17/17 08/18/17 Metoprolol [Lopressor] 25 mg PO DAILY 03/17/17 08/18/17 Sennosides/Docusate Sodium 2 each PO BID 03/17/17 08/18/17 [Senna-S Tablet] Ammonium Lactate [Lac-Hydrin Five] 226 gm TP BID 08/18/17 08/18/17 Calcium Polycarbophil [Fiber 625 mg PO BID 08/18/17 08/18/17 Laxative] Furosemide [Lasix] 20 mg PO DAILY 08/18/17 08/18/17 Previous Rx's Medication Instructions Recorded Insulin DETEMIR [Levemir] 10 unit SQ BID #0 03/18/17 Levothyroxine [Synthroid] 100 mcg PO 0630 365 Days tablet 03/18/17 Pantoprazole Sodium 40 mg PO DAILY #0 03/18/17 Allergies Allergy/AdvReac Type Severity Reaction Status Date / Time aminophylline Allergy See Verified 08/18/17 08:43 Comments Benzoate Analogues Allergy See Verified 08/18/17 08:43 Comments clavulanic acid Allergy See Verified 08/18/17 08:43 Comments colistin [From Coly-Mycin S] Allergy See Verified 08/18/17 08:43 Comments disulfiram [From Antabuse] Allergy See Verified 08/18/17 08:43 Comments Ethanolamine Allergy See Verified 08/18/17 08:43 Comments ethylenediamine Allergy See Verified 08/18/17 08:43 Comments hepatitis A virus vaccine Allergy See Verified 08/18/17 08:43 [From Twinrix] Comments hepatitis B virus vaccine, Allergy See Verified 08/18/17 08:43 recombin Comments [From Twinrix] hydrocortisone Allergy See Verified 08/18/17 08:43 [From Coly-Mycin S] Comments Uzbek encephalitis vaccine Allergy See Verified 08/18/17 08:43 [From Je-Vax] Comments Medrysone [From Liquifilm] Allergy See Verified 08/18/17 08:43 Comments Merbromin Allergy See Verified 08/18/17 08:43 Comments Mercury (Elemental) Allergy See Verified 08/18/17 08:43 Comments Neomycin [From Coly-Mycin S] Allergy See Verified 08/18/17 08:43 Comments oxymetazoline Allergy See Verified 08/18/17 08:43 [From Kev-Synephrine Comments (phenylephrine)] phenylephrine Allergy See Verified 08/18/17 08:43 [From Kev-Synephrine Comments (phenylephrine)] Piperazine Allergy See Verified 08/18/17 08:43 Comments piroxicam Allergy See Verified 08/18/17 08:43 Comments Tetanus Vaccines and Toxoid Allergy See Verified 08/18/17 08:43 [Tetanus Vaccines & Toxoid] Comments thimerosal Allergy See Verified 08/18/17 08:43 Comments Thonzonium Allergy See Verified 08/18/17 08:43 [From Coly-Mycin S] Comments Triethylenemelamine Allergy See Verified 08/18/17 08:43 Comments Amoxicillin AdvReac Abdominal Verified 08/18/17 08:43 Pain diphenhydramine AdvReac Itching Verified 08/18/17 08:43 [From Benadryl] naproxen AdvReac Abdominal Verified 08/18/17 08:43 Pain sulfamethoxazole AdvReac Abdominal Verified 08/18/17 08:43 [From Bactrim] Pain trimethoprim [From Bactrim] AdvReac Abdominal Verified 08/18/17 08:43 Pain All systems ED: reviewed and negative except as stated. Review of Systems: As Per HPI Constitutional: Reports: fever. Denies: chills, weakness Eyes: Denies: eye pain, eye discharge ENT ED: Denies: ear pain Cardiovascular: Denies: chest pain, palpitations Respiratory: Denies: cough, dyspnea Gastrointestinal: Denies: abdominal pain, nausea, vomiting Genitourinary: Denies: urgency, dysuria, frequency Musculoskeletal: Denies: back pain, neck pain Integumentary: Denies: rash, abrasion Neurological: Denies: headache, weakness Psychiatric: Denies: anxiety Endocrine: Denies: fatigue Hematological/Lymphatic: Denies: easy bleeding Allergic/Immunologic: Denies: facial swelling Past Medical History - Past Medical History Attestation: Yes The following information was validated with the patient. Source: patient, nursing notes reviewed Medical history: Reports: arthritis, atrial fibrillation, CHF, COPD, diabetes, hypertension, TIA, other Surgical history: Reports: Psychiatric history: Reports: no psych history - Social History Smoking Status: Former smoker Smokeless Tobacco Status: No Alcohol use: Reports: none Drug use: Reports: none, other Physical Exam - General Limitations: no limitations General appearance: alert, in no apparent distress, anxious, obese - Head Head exam: normocephalic, normal inspection - Expanded Head Exam 1 - Small pustule 2 - Scabbed area dried black center core 3 - The red erythematous A swelling and edema involving up to the nasolabial area across the labial area across the lips and of the chin area - Eye Eye exam: Present: normal appearance, PERRL, EOMI - ENT ENT exam: normal exam, normal oropharynx, mucous membranes moist, TM's normal bilaterally, normal external ear exam - Neck Neck exam: Present: normal inspection, full ROM, trachea midline - Chest Chest inspection: Present: normal inspection, symmetric chest wall rise - Respiratory Respiratory exam: Present: normal lung sounds bilaterally - Cardiovascular Cardiovascular exam: Present: regular rate, normal rhythm, normal heart sounds - Abdominal Exam Abdominal exam: Present: soft, Non-Tender, normal bowel sounds. Absent: mass, pulsatile mass - Extremities Exam Extremities exam: Present: normal inspection, full ROM, normal capillary refill. Absent: tenderness, pedal edema, joint swelling, calf tenderness - Expanded Lower Extremity Exam Neurovascular/Tendon exam: Present: normal capillary refill, normal fine/light touch Gait: observed and normal - Back Exam Back exam: Present: normal inspection, full ROM. Absent: muscle spasm - Neurological Exam Neurological exam: Present: alert, oriented X3, CN II-XII intact, normal gait - Psychiatric Psychiatric exam: Present: normal affect, normal mood - Skin Skin exam: Present: warm, dry, intact, normal color Course Course Narrative: Patient was seen and examined laboratory data ordered is a small abscess just to the upper aspect of the lab but we will do a CAT scan determine whether it is in sizable and drain there is an area just lateral and inferior to that on the right-hand side which appears to have a black center core which is probably the primary abscess site - Reevaluation(s) Reevaluation #1: Spoke with Dr. Kim and Dr. Joyner both in agreement Vital Signs Temperature 99.0 F 08/18/17 08:23 Pulse Rate 97 08/18/17 08:23 Respiratory Rate 18 08/18/17 08:23 Blood Pressure 129/60 08/18/17 08:23 O2 Sat by Pulse Oximetry 95 08/18/17 08:23 Temperature 101.8 F H 08/18/17 11:29 Pulse Rate 104 08/18/17 11:29 Respiratory Rate 18 08/18/17 11:29 Blood Pressure 188/84 08/18/17 11:29 O2 Sat by Pulse Oximetry 96 08/18/17 11:29 Oxygen Delivery Oxygen Delivery Room Air Skin/Abscess/Foreign Body - Differential Diagnosis Likely: abscess of skin or subcutaneous tissue, cellulitis - Medical Records Medical records reviewed: Yes I reviewed the patient's medical records. - Lab Data Lab results reviewed: Yes I reviewed the patient's lab results. Result diagrams: 08/18/17 09:10 08/18/17 09:10 Lab Results 08/18/17 08/18/17 08/18/17 Range/Units 09:10 09:10 09:10 WBC 15.2 H (4.3-11.1) K/mcL RBC 3.71 L (3.82-4.97) M/mcL Hgb 12.0 (11.5-15.4) g/dL Hct 35.5 (35.3-44.9) % MCV 95.7 (83.0-100.0) fL MCH 32.3 (28.0-33.3) pg MCHC 33.8 (31.6-35.5) g/dL RDW 13.1 (11.5-14.5) % Plt Count 241 (140-400) K/mcL MPV 9.5 (9.4-12.4) fL Immature Gran % 0.4 (0-4) % Seg Neutrophils % 92.5 % Lymphocytes % 2.8 % Monocytes % 4.0 % Eosinophils % 0.1 % Basophils % 0.2 % Neutrophils # 14.1 H (1.6-8.9) K/mcL Lymphocytes # 0.4 L (0.6-4.6) K/mcL Monocytes # 0.6 (0.0-1.3) K/mcL Eosinophils # 0.0 (0.0-0.6) K/mcL Basophils # 0.0 (0.0-0.2) K/mcL Sodium 136 (136-145) mEq/L Potassium 4.4 (3.5-4.5) mEq/L Chloride 97 L (98-109) mEq/L Carbon Dioxide 28 (19-29) mEq/L BUN 32 H (7-20) mg/dL Creatinine 1.17 H (0.57-1.11) mg/dL Est GFR ( Amer) 55 L (> 60) Est GFR (Non-Af Amer) 46 L (> 60) BUN/Creatinine Ratio 27 H (6-26) Glucose 175 H (70-99) mg/dL Calculated Osmolality 293 (280-300) Lactic Acid 1.7 (0.5-2.2) mmol/L Calcium 10.3 (8.6-10.8) mg/dL - Radiology Data Radiology results reviewed: Yes I reviewed the patient's radiology results. ITS Impressions Face CT 08/18/17 08:28 IMPRESSION: Right facial cellulitis. No abscess. D/ / Valentin García MD / Valentin García MD Interpreting Provider: Valentin García MD Critical Care Time Critical Care Time: No
[2017-08-18] MEDS ORDERED: 0.9 % Sodium Chloride 1,000 ML IVC SCH (08:45)
[2017-08-18] MEDS ORDERED: Vancomycin 1,000 MG in D5% in Water 250 ML IVPB ONE (08:45)
[2017-08-18] MEDS ORDERED: Clindamycin 600 MG/50 ML 600 MG/50 ML IV.SOLN IVPB ONE (08:45)
[2017-08-18 09:23] LABS: Basophils % 0.2 %; Eosinophils % 0.1 %; Hematocrit 35.5 % (35.3-44.9); Immature Granulocytes % 0.4 % (0-4); Lymphocytes # 0.4 K/mcL (0.6-4.6); Lymphocytes % 2.8 %; Mean Corpuscular HGB Conc 33.8 g/dL (31.6-35.5); Mean Corpuscular Hemoglobin 32.3 pg (28.0-33.3); Mean Corpuscular Volume 95.7 fL (83.0-100.0); Mean Platelet Volume 9.5 fL (9.4-12.4); Monocytes # 0.6 K/mcL (0.0-1.3); Platelet Count 241 K/mcL (140-400); Red Blood Count 3.71 M/mcL (3.82-4.97); Red Cell Distribution Width 13.1 % (11.5-14.5); Segmented Neutrophils % 92.5 %
[2017-08-18 09:39] LABS: Neutrophils # 14.1 K/mcL (1.6-8.9)
[2017-08-18 09:44] LABS: Calcium 10.3 mg/dL (8.6-10.8); Potassium 4.4 mEq/L (3.5-4.5)
[2017-08-18] MEDS ORDERED: *HR* Acetaminophen w/Cod 300-30 mg 1 TAB TABLET PO ONE (12:00)
[2017-08-18] MEDS ORDERED: Ibuprofen 400 MG TABLET PO PRN (13:29)
[2017-08-18] MEDS ORDERED: *HR* Dextrose 50 % in Water (Syg) 50 ML SYRINGE IVP PRN (13:29)
[2017-08-18] MEDS ORDERED: Naloxone 0.4 MG/ML INJ IVP PRN (13:29)
[2017-08-18] MEDS ORDERED: Baclofen 10 MG TABLET PO PRN (13:29)
[2017-08-18] MEDS ORDERED: Dextrose Gel 15 GM PO PRN ×2 (13:29)
[2017-08-18] MEDS ORDERED: Ondansetron ODT 4 MG TAB.RAPDIS SL PRN (13:29)
[2017-08-18] MEDS ORDERED: Acetaminophen 325 MG TABLET PO PRN ×2 (13:29→19:15)
[2017-08-18] MEDS ORDERED: D5% in Water 1,000 ML IVC PRN (13:29)
[2017-08-18] MEDS: 0.9 % Sodium Chloride 1,000 ML IVC SCH (14:00)
[2017-08-18] MEDS: Carbidopa/Levodopa ER 50/200 TABLET PO SCH ×2 (14:57→21:53)
[2017-08-18] MEDS: hydrOXYzine pamoate 25 MG CAPSULE PO SCH ×2 (14:57→21:53)
[2017-08-18] MEDS: Insulin LISPRO 300 UNITS/3 ML VIAL SQ SCH ×3 (14:57→23:28)
--- NOTE | 2017-08-18 19:19 | Internal Med History&Physical ---
Date of Encounter: 08/18/17 Time of Encounter: 18:45 Assessment and Plan (1) Facial cellulitis Current visit: Yes Status: Acute She was given IV vancomycin and clindamycin in emergency room. I will continue the vancomycin and give Ancef with lactobacillus. Recheck labs in a.m. (2) Hypertension Current visit: Yes Status: Acute Continue Cozaar and Lopressor Qualifiers: Hypertension type: essential hypertension Qualified Code(s): I10 - Essential (primary) hypertension (3) DM type 2 (diabetes mellitus, type 2) Current visit: Yes Status: Chronic Hemoglobin A1c was 6.3% on 08/31/2016. Will recheck in a.m. Continue Levemir and do Accu-Cheks with SSI. Qualifiers: Diabetes mellitus complication status: with kidney complications Diabetes mellitus complication detail: with chronic kidney disease Diabetes mellitus ferry terminal agent insulin use: with ferry terminal agent use Chronic kidney disease stage: stage 3 (moderate) Qualified Code(s): E11.22 - Type 2 diabetes mellitus with diabetic chronic kidney disease; N18.3 - Chronic kidney disease, stage 3 ( moderate); N18.3 - Chronic kidney disease, stage 3 (moderate); Z79.4 - MCC (current) use of insulin; Z79.4 - MCC (current) use of insulin; Z79.4 - terminal gauger (current) use of insulin; Z79.4 - MCC (current) use of insulin (4) CKD (chronic kidney disease) stage 3, GFR 30-59 ml/min Current visit: No Status: Chronic We will hold Lasix and give IV fluids. Recheck labs in a.m. (5) Hypothyroid Current visit: No Status: Acute Will check TSH in a.m. Qualifiers: Hypothyroidism type: unspecified Qualified Code(s): E03.9 - Hypothyroidism , unspecified Internal Medicine - H&P: HPI Chief complaint: Cellulitis with fever Admitted From: Emergency Dept Plans for Post Hospital Care: Home History of present illness: Ms. Barrno is a 71 year old female who was sent to the emergency room after nursing staff found her to have facial cellulitis. She reportedly was shaving her face at the half-way yesterday with a razor. She had no evidence of cellulitis prior to shaving. She was evaluated in the emergency room and found to have significant facial cellulitis. She was given IV antibiotics and admitted to MedSurg floor for ongoing care needs. Past Med Surg Social Fam HX - Past Medical History Medical history: arthritis, atrial fibrillation, CHF, COPD, diabetes, hypertension, TIA, other Psychiatric history: no psych history - Past Surgical History Surgical History: - Social History Smoking Status: Former smoker Smokeless Tobacco Status: No Alcohol use: none Drug use: none, other Internal Medicine - H&P: Meds Acetaminophen [Tylenol] 325 mg PO Q6HR PRN 05/05/16 [History] Allopurinol [Zyloprim] 150 mg PO DAILY 05/05/16 [History] Aspirin [Lo-Dose Aspirin EC] 81 mg PO QAM 05/05/16 [History] Atorvastatin [Lipitor] 10 mg PO HS 05/05/16 [History] Baclofen [Lioresal] 10 mg PO TID PRN 05/05/16 [History] Carbidopa/Levodopa ER 50/200 [Sinemet ER 50-200 Tab] 1 each PO TID 05/05/16 [ History] Cyanocobalamin (Vitamin B-12) [Vitamin B-12] 1,000 mcg SL QAM 05/05/16 [History] Fenofibrate 200 mg PO QAM 05/05/16 [History] HYDROcodone/Acet 5/325 mg [[place] 5-325 mg] 1 tab PO BID PRN 05/05/16 [History] Insulin ASPART [Novolog] 0 unit SQ TIDWM 05/05/16 [History] Losartan Potassium [Cozaar] 25 mg PO DAILY 05/05/16 [History] Magnesium Oxide [Magnesium] 500 mg PO BID 05/05/16 [History] Ondansetron HCl 4 mg PO Q4H PRN 05/05/16 [History] Renal Vitamin [Renal Caps Softgel] 1 mg PO DAILY 05/05/16 [History] Venlafaxine HCl [Effexor Xr] 225 mg PO HS 05/05/16 [History] hydrOXYzine pamoate [HydrOXYzine Pamoate] 25 mg PO Q6H 05/05/16 [History] Dextran 70/Hypromellose [Artificial Tears Eye Drops] 1 drop OP BID 03/17/17 [ History] Insulin Regular, Human [Novolin R] 6 unit SQ TID 03/17/17 [History] Metoprolol [Lopressor] 25 mg PO DAILY 03/17/17 [History] Sennosides/Docusate Sodium [Senna-S Tablet] 2 each PO BID 03/17/17 [History] Insulin DETEMIR [Levemir] 10 unit SQ BID #0 03/18/17 [Rx] Levothyroxine [Synthroid] 100 mcg PO 0630 365 Days tablet 03/18/17 [Rx] Pantoprazole Sodium 40 mg PO DAILY #0 03/18/17 [Rx] Ammonium Lactate [Lac-Hydrin Five] 226 gm TP BID 08/18/17 [History] Calcium Polycarbophil [Fiber Laxative] 625 mg PO BID 08/18/17 [History] Furosemide [Lasix] 20 mg PO DAILY 08/18/17 [History] 3 Allergy/AdvReac Type Severity Reaction Status Date / Time aminophylline Allergy See Verified 08/18/17 08:43 Comments Benzoate Analogues Allergy See Verified 08/18/17 08:43 Comments clavulanic acid Allergy See Verified 08/18/17 08:43 Comments colistin [From Coly-Mycin S] Allergy See Verified 08/18/17 08:43 Comments disulfiram [From Antabuse] Allergy See Verified 08/18/17 08:43 Comments Ethanolamine Allergy See Verified 08/18/17 08:43 Comments ethylenediamine Allergy See Verified 08/18/17 08:43 Comments hepatitis A virus vaccine Allergy See Verified 08/18/17 08:43 [From Twinrix] Comments hepatitis B virus vaccine, Allergy See Verified 08/18/17 08:43 recombin Comments [From Twinrix] hydrocortisone Allergy See Verified 08/18/17 08:43 [From Coly-Mycin S] Comments Palestinian encephalitis vaccine Allergy See Verified 08/18/17 08:43 [From Je-Vax] Comments Medrysone [From Liquifilm] Allergy See Verified 08/18/17 08:43 Comments Merbromin Allergy See Verified 08/18/17 08:43 Comments Mercury (Elemental) Allergy See Verified 08/18/17 08:43 Comments Neomycin [From Coly-Mycin S] Allergy See Verified 08/18/17 08:43 Comments oxymetazoline Allergy See Verified 08/18/17 08:43 [From Kev-Synephrine Comments (phenylephrine)] phenylephrine Allergy See Verified 08/18/17 08:43 [From Kev-Synephrine Comments (phenylephrine)] Piperazine Allergy See Verified 08/18/17 08:43 Comments piroxicam Allergy See Verified 08/18/17 08:43 Comments Tetanus Vaccines and Toxoid Allergy See Verified 08/18/17 08:43 [Tetanus Vaccines & Toxoid] Comments thimerosal Allergy See Verified 08/18/17 08:43 Comments Thonzonium Allergy See Verified 08/18/17 08:43 [From Coly-Mycin S] Comments Triethylenemelamine Allergy See Verified 08/18/17 08:43 Comments Amoxicillin AdvReac Abdominal Verified 08/18/17 08:43 Pain diphenhydramine AdvReac Itching Verified 08/18/17 08:43 [From Benadryl] naproxen AdvReac Abdominal Verified 08/18/17 08:43 Pain sulfamethoxazole AdvReac Abdominal Verified 08/18/17 08:43 [From Bactrim] Pain trimethoprim [From Bactrim] AdvReac Abdominal Verified 08/18/17 08:43 Pain All Systems PM: A 10-system review of systems was performed and is negative for pertinent findings except as documented above in the HPI. Review of systems: Review of systems from her February 2017 [facility] hospitalization were reviewed and revised as below. Gen.: Her weight has decreased from 91.3 kg on 03/18/2017 to 88.536 kg on admission now. Cardiovascular: She has a history of hypertension and thinks she has had heart failure in the past. She is uncertain if she had a DVT many years ago. She denies PR or pulmonary embolism Respiratory: She quit smoking approximately age 36 and has no known chronic lung disease. She states she had a "right lung nodule" seen in the past. She has ANGELINA and wears BiPAP at bedtime GI: She has diagnosis of GERD. She has had cholecystectomy. 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 She has chronic kidney disease and follows with Dr. Shanks Neurologic: She claims she was told she had a stroke from a past head CT report. She was unaware of its time of occurrence. She denies neurologic deficits. She denies seizures. She has diagnoses of Parkinson's disease and restless leg syndrome. She ambulates in the half-way with a walker. Endocrine: She was diagnosed with DM 2 approximately age 59. She has hyperlipidemia but denies thyroid disease. Hematology/oncology: She denies blood disorders, cancers or anemia Psychiatric: She has depression but denies anxiety other mental health issues Musk skeletal: She has history of gout and minimal arthritis. She denies other bone joint or muscle disorders. - Constitutional Vitals: Temp Pulse Resp BP Pulse Ox 99.4 F 108 18 135/63 93 08/18/17 16:21 08/18/17 16:21 08/18/17 16:21 08/18/17 16:21 08/18/17 16:21 Exam: Gen.: She is a well-developed well-nourished female lying in bed who appears in mild distress. HEENT: Head is atraumatic and normal cephalic. Eyes: EOMI. There is no scleral icterus. Mouth: Mucosa is moist. She has right lower face and chin erythema with a pustule near the upper right lateral lip area. There is some induration of the skin around the mouth. The erythema extends under the chin into the midline neck area. Heart: Regular without murmurs gallops or ectopics at rate approximately 100/m. Lungs: No wheezes or crackles are heard. Abdomen: Soft and nontender. No masses or guarding are noted. Extremities: There is no cyanosis. She has bilateral lower leg erythema with venous stasis and a single vesicle on the right lateral lower leg measuring approximately 2 cm maximum diameter. Dorsalis pedis and posterior tibial pulses are 1-2 over 2 bilaterally. Neurologic: Mental status: She is able to answer a few questions but seems lethargic. Cranial nerves: Smile is asymmetric with swelling and induration of the right lower face as per above. Forward wrinkles bilaterally. Tongue protrudes midline. EOMI. Motor: There is no pronator drift. Cerebellar: Finger to nose is intact bilaterally. Skin: Warm and dry Internal Med - H&P Results - Labs CBC & Chem 7: 08/18/17 09:10 08/18/17 09:10
[2017-08-18] MEDS ORDERED: NON-FORMULARY MEDICATION 1 EACH EACH (Insulin Detemir 10 UNIT) SQ SCH (21:00)
[2017-08-18] MEDS ORDERED: Ammonium Lactate 30 APPL/225 GM BOTTLE TP SCH (21:00)
[2017-08-18] MEDS: ceFAZolin 2,000 MG in Water for inj. (sterile) 20 ML IVP SCH (21:51)
[2017-08-18] MEDS: Venlafaxine XR (24 HR) 37.5 MG CAP.ER.24H PO SCH (21:52)
[2017-08-18] MEDS: *HR* HYDROcodone/Acet 5/325 mg TABLET PO PRN (21:53)
[2017-08-18] MEDS: Magnesium Oxide 400 MG TABLET PO SCH (21:53)
[2017-08-18] MEDS: Sennosides/Docusate Sodium TABLET PO SCH (21:53)
[2017-08-18] MEDS: Artificial Tears SOLN 15 ML BOTTLE OP SCH (21:55)
[2017-08-18] MEDS ORDERED: Vancomycin 500 MG in D5% in Water 250 ML IVPB ONE (22:00)
[2017-08-18] MEDS ORDERED: Vancomycin 750 MG in D5% in Water 250 ML IVPB ONE (22:00)
[2017-08-18] MEDS ORDERED: Vancomycin 750 MG in D5% in Water 250 ML IVPB SCH (23:00)
[2017-08-18] MEDS: Insulin DETEMIR 100 UNIT/ML X5UNITS SQ SCH (23:28)
[2017-08-19] MEDS ORDERED: Vancomycin 500 MG in D5% in Water 100 ML IVPB SCH (01:00)
[2017-08-19] MEDS: 0.9 % Sodium Chloride 1,000 ML IVC SCH ×3 (03:01→15:55)
[2017-08-19] MEDS: *HR* HYDROcodone/Acet 5/325 mg TABLET PO PRN ×2 (03:02→21:34)
[2017-08-19 03:40] LABS: mecA Methicillin-Resist Gene ***DETECTED*** (Not Detect)
[2017-08-19 03:41] LABS: Acinetobacter baumannii by PCR Not Detected (Not Detect); Candida albicans by PCR Not Detected (Not Detect); Candida glabrata by PCR Not Detected (Not Detect); Candida krusei by PCR Not Detected (Not Detect); Candida parapsilosis by PCR Not Detected (Not Detect); Candida tropicalis by PCR Not Detected (Not Detect); Enterococcus by PCR Not Detected (Not Detect); Escherichia coli by PCR Not Detected (Not Detect); Klebsiella oxytoca by PCR Not Detected (Not Detect); Klebsiella pneumoniae by PCR Not Detected (Not Detect); Pseudomonas aeruginosa by PCR Not Detected (Not Detect); Serratia marcescens by PCR Not Detected (Not Detect); Staphylococcus aureus by PCR ***DETECTED*** (Not Detect); Streptococcus agalactiae(B)PCR Not Detected (Not Detect); Streptococcus by PCR Not Detected (Not Detect); Streptococcus pneumoniae PCR Not Detected (Not Detect); Streptococcus pyogenes (A) PCR Not Detected (Not Detect)
[2017-08-19] MEDS: ceFAZolin 2,000 MG in Water for inj. (sterile) 20 ML IVP SCH ×2 (04:23→12:42)
[2017-08-19] MEDS: hydrOXYzine pamoate 25 MG CAPSULE PO SCH ×4 (04:24→18:50)
[2017-08-19 06:20] LABS: Basophils % 0.3 %; Hematocrit 32.9 % (35.3-44.9); Hemoglobin 11.1 g/dL (11.5-15.4); Immature Granulocytes % 0.9 % (0-4); Lymphocytes # 0.3 K/mcL (0.6-4.6); Lymphocytes % 4.3 %; Mean Corpuscular HGB Conc 33.7 g/dL (31.6-35.5); Mean Corpuscular Hemoglobin 32.2 pg (28.0-33.3); Mean Corpuscular Volume 95.4 fL (83.0-100.0); Mean Platelet Volume 9.9 fL (9.4-12.4); Monocytes # 0.3 K/mcL (0.0-1.3); Monocytes % 4.3 %; Neutrophils # 6.9 K/mcL (1.6-8.9); Platelet Count 185 K/mcL (140-400); Red Blood Count 3.45 M/mcL (3.82-4.97); Red Cell Distribution Width 13.2 % (11.5-14.5); Segmented Neutrophils % 90.2 %
[2017-08-19 06:37] LABS: BUN/Creatinine Ratio 20 (6-26); Blood Urea Nitrogen 17 mg/dL (7-20); Calcium 9.5 mg/dL (8.6-10.8); Carbon Dioxide 24 mEq/L (19-29); Chloride 100 mEq/L (98-109); Glucose 173 mg/dL (70-99); Magnesium 1.3 mg/dL (1.6-2.6); Osmolality,Calculated 282 (280-300); Potassium 3.8 mEq/L (3.5-4.5); Sodium 133 mEq/L (136-145); eGFR For African Americans > 60 (> 60); eGFR For Non-African Americans > 60 (> 60)
[2017-08-19 06:59] LABS: Thyroid Stimulating Hormone 0.239 mcIU/mL (0.350-4.840)
[2017-08-19] MEDS: Cyanocobalamin (B-12) 1,000 MCG TABLET PO SCH (08:23)
[2017-08-19] MEDS: Aspirin Enteric Coated 81 MG Tablet PO SCH (08:23)
[2017-08-19] MEDS: Magnesium Oxide 400 MG TABLET PO SCH ×3 (08:23→21:33)
[2017-08-19] MEDS: Sennosides/Docusate Sodium TABLET PO SCH ×2 (08:23→21:35)
[2017-08-19] MEDS: Fenofibrate 54 MG TABLET PO SCH (08:23)
[2017-08-19] MEDS: Renal Vitamin 1 MG CAPSULE PO SCH (08:23)
[2017-08-19] MEDS: Carbidopa/Levodopa ER 50/200 TABLET PO SCH ×3 (08:23→21:33)
[2017-08-19] MEDS: Insulin LISPRO 300 UNITS/3 ML VIAL SQ SCH ×6 (08:29→22:34)
[2017-08-19] MEDS: Artificial Tears SOLN 15 ML BOTTLE OP SCH ×2 (08:29→22:34)
[2017-08-19] MEDS ORDERED: Furosemide 20 MG TABLET PO SCH (09:00)
[2017-08-19 09:53] LABS: Hemoglobin A1C 6.3 %
[2017-08-19] MEDS ORDERED: Vancomycin 1,250 MG in D5% in Water 250 ML IVPB SCH ×2 (10:00→23:00)
[2017-08-19] MEDS: Insulin DETEMIR 100 UNIT/ML X5UNITS SQ SCH ×2 (12:39→22:34)
--- NOTE | 2017-08-19 12:45 | Internal Med Progress Note ---
Date of Encounter: 08/19/17 Time of Encounter: 12:35 - Assessment and plan (1) Facial cellulitis Current Visit: Yes Status: Acute Assessment and plan: August 19. Continue IV vancomycin but discontinue Ancef. WBC has normalized (2) Hypertension Current Visit: Yes Status: Acute Assessment and plan: August 19. Continue Cozaar and Lopressor Qualifiers: Hypertension type: essential hypertension Qualified Code(s): I10 - Essential (primary) hypertension (3) DM type 2 (diabetes mellitus, type 2) Current Visit: Yes Status: Chronic Assessment and plan: August 19. Hemoglobin A1c was 6.3%. Continue Levemir and Accu-Cheks with SSI. Qualifiers: Diabetes mellitus complication status: with kidney complications Diabetes mellitus complication detail: with chronic kidney disease Diabetes mellitus local company intermodal truck driver insulin use: with local company intermodal truck driver use Chronic kidney disease stage: stage 3 (moderate) Qualified Code(s): E11.22 - Type 2 diabetes mellitus with diabetic chronic kidney disease; N18.3 - Chronic kidney disease, stage 3 ( moderate); N18.3 - Chronic kidney disease, stage 3 (moderate); Z79.4 - terminal worker (current) use of insulin; Z79.4 - terminal worker (current) use of insulin; Z79.4 - terminal worker (current) use of insulin; Z79.4 - terminal worker (current) use of insulin (4) CKD (chronic kidney disease) stage 3, GFR 30-59 ml/min Current Visit: No Status: Chronic Assessment and plan: August 19. Azotemia has completely resolved with BUN and creatinine being 17 and 0.8 respectively today. Continue present management. (5) Hypothyroid Current Visit: No Status: Acute Assessment and plan: August 19. TSH has returned suppressed at 0.239. We will decrease Synthroid. Qualifiers: Hypothyroidism type: unspecified Qualified Code(s): E03.9 - Hypothyroidism , unspecified (6) Hypomagnesemia Current Visit: Yes Status: Acute Assessment and plan: August 19. Magnesium level returned low at 1.3. Will increase magnesium oxide and monitor labs. - Subjective Interval history: August 19. She has no new complaints. She states she does not feel improved overall. - Constitutional Vitals: Temp Pulse Resp BP Pulse Ox 102.2 F H 94 20 128/68 94 08/19/17 09:00 08/19/17 09:00 08/19/17 09:00 08/19/17 09:00 08/19/17 09:00 Exam: She is resting comfortably in bed and appears slightly more awake than yesterday. Her affect is more bright and cheerful. There is no significant change in the erythema of her face. I reviewed her medications and lab results including blood culture showing MRSA. Internal Medicine: Result - Labs CBC & Chem 7: 08/19/17 05:26 08/19/17 05:26 Labs: Short CBC 08/19/17 Range/Units 05:26 WBC 7.6 (4.3-11.1) K/mcL Hgb 11.1 L (11.5-15.4) g/dL Hct 32.9 L (35.3-44.9) % Plt Count 185 (140-400) K/mcL Neutrophils # 6.9 (1.6-8.9) K/mcL BMP 08/19/17 05:26 Sodium 133 L Potassium 3.8 Chloride 100 Carbon Dioxide 24 BUN 17 D Creatinine 0.83 Glucose 173 H Calcium 9.5 Consult Discharge Plan - Plan Referrals: Anthony Joyner MD [Primary Care Provider] - 1 week
[2017-08-19] MEDS: Venlafaxine XR (24 HR) 37.5 MG CAP.ER.24H PO SCH (21:33)
[2017-08-20] MEDS: hydrOXYzine pamoate 25 MG CAPSULE PO SCH ×3 (03:38→14:27)
[2017-08-20] MEDS: *HR* HYDROcodone/Acet 5/325 mg TABLET PO PRN (03:38)
[2017-08-20] MEDS ORDERED: *HR* Enoxaparin 40 MG/0.4 ML SYRINGE SQ SCH (06:00)
[2017-08-20 06:47] LABS: Basophils % 0.5 %; Hematocrit 29.7 % (35.3-44.9); Hemoglobin 10.1 g/dL (11.5-15.4); Immature Granulocytes % 0.5 % (0-4); Lymphocytes # 0.6 K/mcL (0.6-4.6); Lymphocytes % 14.6 %; Mean Corpuscular Hemoglobin 32.2 pg (28.0-33.3); Mean Corpuscular Volume 94.6 fL (83.0-100.0); Mean Platelet Volume 9.5 fL (9.4-12.4); Monocytes # 0.3 K/mcL (0.0-1.3); Monocytes % 8.3 %; Platelet Count 143 K/mcL (140-400); Red Blood Count 3.14 M/mcL (3.82-4.97); Red Cell Distribution Width 13.2 % (11.5-14.5); Segmented Neutrophils % 75.1 %
[2017-08-20 07:06] LABS: BUN/Creatinine Ratio 22 (6-26); Blood Urea Nitrogen 16 mg/dL (7-20); Calcium 8.9 mg/dL (8.6-10.8); Carbon Dioxide 24 mEq/L (19-29); Chloride 104 mEq/L (98-109); Glucose 59 mg/dL (70-99); Osmolality,Calculated 281 (280-300); Potassium 3.4 mEq/L (3.5-4.5); Sodium 136 mEq/L (136-145); eGFR For African Americans > 60 (> 60); eGFR For Non-African Americans > 60 (> 60)
[2017-08-20] MEDS: Fenofibrate 54 MG TABLET PO SCH (07:45)
[2017-08-20] MEDS: Carbidopa/Levodopa ER 50/200 TABLET PO SCH ×2 (07:46→14:27)
[2017-08-20] MEDS: Magnesium Oxide 400 MG TABLET PO SCH ×2 (07:46→14:27)
[2017-08-20] MEDS: Aspirin Enteric Coated 81 MG Tablet PO SCH (07:46)
[2017-08-20] MEDS: Sennosides/Docusate Sodium TABLET PO SCH (07:46)
[2017-08-20] MEDS: Cyanocobalamin (B-12) 1,000 MCG TABLET PO SCH (07:46)
[2017-08-20] MEDS: Renal Vitamin 1 MG CAPSULE PO SCH (07:46)
[2017-08-20] MEDS: Artificial Tears SOLN 15 ML BOTTLE OP SCH (07:47)
[2017-08-20] MEDS: 0.9 % Sodium Chloride 1,000 ML IVC SCH (07:52)
[2017-08-20] MEDS: Insulin DETEMIR 100 UNIT/ML X5UNITS SQ SCH (07:53)
[2017-08-20] MEDS: Insulin LISPRO 300 UNITS/3 ML VIAL SQ SCH ×5 (07:53→18:26)
--- NOTE | 2017-08-20 09:54 | Internal Med Progress Note ---
Date of Encounter: 08/20/17 Time of Encounter: 09:45 - Assessment and plan (1) Facial cellulitis Current Visit: Yes Status: Acute Assessment and plan: August 19. Continue IV vancomycin but discontinue Ancef. WBC has normalized (2) Hypertension Current Visit: Yes Status: Acute Assessment and plan: August 19. Continue Cozaar and Lopressor Qualifiers: Hypertension type: essential hypertension Qualified Code(s): I10 - Essential (primary) hypertension (3) DM type 2 (diabetes mellitus, type 2) Current Visit: Yes Status: Chronic Assessment and plan: August 19. Hemoglobin A1c was 6.3%. Continue Levemir and Accu-Cheks with SSI. Qualifiers: Diabetes mellitus complication status: with kidney complications Diabetes mellitus complication detail: with chronic kidney disease Diabetes mellitus termite exterminator insulin use: with termite exterminator use Chronic kidney disease stage: stage 3 (moderate) Qualified Code(s): E11.22 - Type 2 diabetes mellitus with diabetic chronic kidney disease; N18.3 - Chronic kidney disease, stage 3 ( moderate); N18.3 - Chronic kidney disease, stage 3 (moderate); Z79.4 - termite exterminator (current) use of insulin; Z79.4 - termite exterminator (current) use of insulin; Z79.4 - termite exterminator (current) use of insulin; Z79.4 - termite exterminator (current) use of insulin (4) CKD (chronic kidney disease) stage 3, GFR 30-59 ml/min Current Visit: No Status: Chronic Assessment and plan: August 19. Azotemia has completely resolved with BUN and creatinine being 17 and 0.8 respectively today. Continue present management. (5) Hypothyroid Current Visit: No Status: Acute Assessment and plan: August 19. TSH has returned suppressed at 0.239. We will decrease Synthroid. Qualifiers: Hypothyroidism type: unspecified Qualified Code(s): E03.9 - Hypothyroidism , unspecified (6) Hypomagnesemia Current Visit: Yes Status: Acute Assessment and plan: August 19. Magnesium level returned low at 1.3. Will increase magnesium oxide and monitor labs. August 20. We will recheck labs in a.m. (7) Anemia Current Visit: Yes Status: Acute Assessment and plan: August 20. We will order anemia testing in a.m. Qualifiers: Anemia type: unspecified type Qualified Code(s): D64.9 - Anemia, unspecified - Subjective Interval history: August 19. She has no new complaints. She states she does not feel improved overall. August 20. She has no new complaints and states she feels slightly better. - Constitutional Vitals: Temp Pulse Resp BP Pulse Ox 99.1 F 82 18 128/56 96 08/20/17 07:18 08/20/17 07:18 08/20/17 07:18 08/20/17 07:18 08/20/17 08:05 Exam: She is sitting in a chair at bedside and appears more comfortable today. The extent of erythema has decreased on her face and submandibular area. She is more talkative. I reviewed her medications and lab results. Internal Medicine: Result - Labs CBC & Chem 7: 08/20/17 06:30 08/20/17 06:30 Labs: Short CBC 08/20/17 Range/Units 06:30 WBC 4.0 L (4.3-11.1) K/mcL Hgb 10.1 L (11.5-15.4) g/dL Hct 29.7 L (35.3-44.9) % Plt Count 143 (140-400) K/mcL BMP 08/20/17 06:30 Sodium 136 Potassium 3.4 L Chloride 104 Carbon Dioxide 24 BUN 16 Creatinine 0.73 Glucose 59 L Calcium 8.9 Consult Discharge Plan - Plan Referrals: Anthony Joyner MD [Primary Care Provider] - 1 week
[2017-08-20] MEDS ORDERED: Aminoglycoside Consult 1 EACH MC ONE (11:00)
[2017-08-20 11:50] LABS: Anisocytosis 1+ (Not Present); Dohle Bodies Present (Not Present); Hypochromasia Present (Not Present); Platelet Estimate Normal (Normal); Polychromasia 1+ (Not Present); Toxic Granulation Present (Not Present)
[2017-08-20] MEDS: Vancomycin 1,250 MG in D5% in Water 250 ML IVPB SCH (14:27)
[2017-08-21] MEDS: Sennosides/Docusate Sodium TABLET PO SCH (00:28)
[2017-08-21] MEDS: Carbidopa/Levodopa ER 50/200 TABLET PO SCH (00:28)
[2017-08-21] MEDS: hydrOXYzine pamoate 25 MG CAPSULE PO SCH (00:29)
[2017-08-21] MEDS: Magnesium Oxide 400 MG TABLET PO SCH (00:30)
[2017-08-21] MEDS: Artificial Tears SOLN 15 ML BOTTLE OP SCH (00:31)
[2017-08-21] MEDS: Venlafaxine XR (24 HR) 37.5 MG CAP.ER.24H PO SCH (00:31)
[2017-08-21] MEDS: Insulin LISPRO 300 UNITS/3 ML VIAL SQ SCH (00:32)
[2017-08-21] MEDS: Insulin DETEMIR 100 UNIT/ML X5UNITS SQ SCH (00:32)
[2017-08-21] MEDS: *HR* HYDROcodone/Acet 5/325 mg TABLET PO PRN (00:35)
[2017-08-21] MEDS: Vancomycin 1,250 MG in D5% in Water 250 ML IVPB SCH (01:03)
--- NOTE | 2017-08-21 09:34 | Discharge Summary ---
Date of Encounter: 08/21/17 Time of Encounter: 09:20 - Discharge Diagnosis (1) Facial cellulitis Priority: Primary Status: Acute (2) Hypertension Priority: Secondary Status: Acute Qualifiers: Hypertension type: essential hypertension Qualified Code(s): I10 - Essential (primary) hypertension (3) DM type 2 (diabetes mellitus, type 2) Priority: Secondary Status: Chronic Qualifiers: Diabetes mellitus complication status: with kidney complications Diabetes mellitus complication detail: with chronic kidney disease Diabetes mellitus terminal computer operator insulin use: with terminal computer operator use Chronic kidney disease stage: stage 3 (moderate) Qualified Code(s): E11.22 - Type 2 diabetes mellitus with diabetic chronic kidney disease; N18.3 - Chronic kidney disease, stage 3 ( moderate); N18.3 - Chronic kidney disease, stage 3 (moderate); Z79.4 - truck terminal manager (current) use of insulin; Z79.4 - truck terminal manager (current) use of insulin; Z79.4 - truck terminal manager (current) use of insulin; Z79.4 - group home (current) use of insulin (4) CKD (chronic kidney disease) stage 3, GFR 30-59 ml/min Priority: Secondary Status: Chronic (5) Hypothyroid Priority: Secondary Status: Acute Qualifiers: Hypothyroidism type: unspecified Qualified Code(s): E03.9 - Hypothyroidism , unspecified (6) Hypomagnesemia Priority: Secondary Status: Acute (7) Anemia Priority: Secondary Status: Acute Qualifiers: Anemia type: unspecified type Qualified Code(s): D64.9 - Anemia, unspecified - Discharge Medications Prescriptions: Clindamycin HCl 300 mg PO Q8H 5 Days capsule Doxycycline 100 mg PO BID 5 Days capsule Lactobacillus Acidophilus [Digestive Probiotic] 1 each PO BID 5 Days capsule Home Medications: Acetaminophen [Tylenol] 325 mg PO Q6HR PRN 05/05/16 [History] Allopurinol [Zyloprim] 150 mg PO DAILY 05/05/16 [History] Aspirin [Lo-Dose Aspirin EC] 81 mg PO QAM 05/05/16 [History] Atorvastatin [Lipitor] 10 mg PO HS 05/05/16 [History] Baclofen [Lioresal] 10 mg PO TID PRN 05/05/16 [History] Carbidopa/Levodopa ER 50/200 [Sinemet ER 50-200 Tab] 1 each PO TID 05/05/16 [ History] Fenofibrate 200 mg PO QAM 05/05/16 [History] HYDROcodone/Acet 5/325 mg [[place] 5-325 mg] 1 tab PO BID PRN 05/05/16 [History] Insulin ASPART [Novolog] 0 unit SQ TIDWM 05/05/16 [History] Losartan Potassium [Cozaar] 25 mg PO DAILY 05/05/16 [History] Magnesium Oxide [Magnesium] 500 mg PO BID 05/05/16 [History] Ondansetron HCl 4 mg PO Q4H PRN 05/05/16 [History] Renal Vitamin [Renal Caps Softgel] 1 mg PO DAILY 05/05/16 [History] Venlafaxine HCl [Effexor Xr] 225 mg PO HS 05/05/16 [History] hydrOXYzine pamoate [HydrOXYzine Pamoate] 25 mg PO Q6H 05/05/16 [History] Dextran 70/Hypromellose [Artificial Tears Eye Drops] 1 drop OP BID 03/17/17 [ History] Insulin Regular, Human [Novolin R] 6 unit SQ TID 03/17/17 [History] Metoprolol [Lopressor] 25 mg PO DAILY 03/17/17 [History] Sennosides/Docusate Sodium [Senna-S Tablet] 2 each PO BID 03/17/17 [History] Insulin DETEMIR [Levemir] 10 unit SQ BID #0 03/18/17 [Rx] Levothyroxine [Synthroid] 100 mcg PO 0630 365 Days tablet 03/18/17 [Rx] Pantoprazole Sodium 40 mg PO DAILY #0 03/18/17 [Rx] Calcium Polycarbophil [Fiber Laxative] 625 mg PO BID 08/18/17 [History] Ammonium Lactate [Lac-Hydrin Five] 226 gm TP Q48H #0 08/21/17 [Rx] Clindamycin HCl 300 mg PO Q8H 5 Days capsule 08/21/17 [Rx] Cyanocobalamin (Vitamin B-12) [Vitamin B-12] 1,000 mcg SL QWEEK #0 08/21/17 [Rx] Doxycycline 100 mg PO BID 5 Days capsule 08/21/17 [Rx] Furosemide [Lasix] 20 mg PO Q48H #0 08/21/17 [Rx] Lactobacillus Acidophilus [Digestive Probiotic] 1 each PO BID 5 Days capsule [Rx] Allergies/Adverse Reactions: 3 Allergy/AdvReac Type Severity Reaction Status Date / Time aminophylline Allergy See Verified 08/18/17 08:43 Comments Benzoate Analogues Allergy See Verified 08/18/17 08:43 Comments clavulanic acid Allergy See Verified 08/18/17 08:43 Comments colistin [From Coly-Mycin S] Allergy See Verified 08/18/17 08:43 Comments disulfiram [From Antabuse] Allergy See Verified 08/18/17 08:43 Comments Ethanolamine Allergy See Verified 08/18/17 08:43 Comments ethylenediamine Allergy See Verified 08/18/17 08:43 Comments hepatitis A virus vaccine Allergy See Verified 08/18/17 08:43 [From Twinrix] Comments hepatitis B virus vaccine, Allergy See Verified 08/18/17 08:43 recombin Comments [From Twinrix] hydrocortisone Allergy See Verified 08/18/17 08:43 [From Coly-Mycin S] Comments [place] encephalitis vaccine Allergy See Verified 08/18/17 08:43 [From Je-Vax] Comments Medrysone [From Liquifilm] Allergy See Verified 08/18/17 08:43 Comments Merbromin Allergy See Verified 08/18/17 08:43 Comments Mercury (Elemental) Allergy See Verified 08/18/17 08:43 Comments Neomycin [From Coly-Mycin S] Allergy See Verified 08/18/17 08:43 Comments oxymetazoline Allergy See Verified 08/18/17 08:43 [From Kev-Synephrine Comments (phenylephrine)] phenylephrine Allergy See Verified 08/18/17 08:43 [From Kev-Synephrine Comments (phenylephrine)] Piperazine Allergy See Verified 08/18/17 08:43 Comments piroxicam Allergy See Verified 08/18/17 08:43 Comments Tetanus Vaccines and Toxoid Allergy See Verified 08/18/17 08:43 [Tetanus Vaccines & Toxoid] Comments thimerosal Allergy See Verified 08/18/17 08:43 Comments Thonzonium Allergy See Verified 08/18/17 08:43 [From Coly-Mycin S] Comments Triethylenemelamine Allergy See Verified 08/18/17 08:43 Comments Amoxicillin AdvReac Abdominal Verified 08/18/17 08:43 Pain diphenhydramine AdvReac Itching Verified 08/18/17 08:43 [From Benadryl] naproxen AdvReac Abdominal Verified 08/18/17 08:43 Pain sulfamethoxazole AdvReac Abdominal Verified 08/18/17 08:43 [From Bactrim] Pain trimethoprim [From Bactrim] AdvReac Abdominal Verified 08/18/17 08:43 Pain Date of admission: 08/19/17 12:51 Primary care physician: Anthony Joyner MD - Patient Status Disposition: Transfer SNF Condition: Fair Overall status at discharge: patient is progressing back to baseline - Discharge Instructions Follow Up With: Anthony Joyner MD [Primary Care Provider] - 1 week - Diet and Activity Activity: resume usual activities as tolerated Diet: advance to your usual diet Hospital course: Ms. Barron is a 71 year old female who was sent to the emergency room after nursing staff found her to have facial cellulitis. She reportedly was shaving her face at the long-term yesterday with a razor. She had no evidence of cellulitis prior to shaving. She was evaluated in the emergency room and found to have significant facial cellulitis. She was given IV antibiotics and admitted to [facility] for ongoing care needs. Initial orders were written by the emergency room physician. I saw her on August 18 and performed a history and physical. She was given IV vancomycin and clindamycin with lactobacillus through emergency room. I discontinued the clindamycin and placed her on Ancef pending culture report. Her blood cultures returned showing MRSA. She continued on IV vancomycin with clinical improvement of the cellulitis. She spiked occasional low-grade fever during hospital stay. WBC normalized by the day after admission and WBC differential normalized by time of discharge. She was given IV fluids and azotemia normalized with BUN and creatinine being 16 and 0.73 respectively on August 20. Estimated GFR was greater than 60. Magnesium level returned low at 1.3. Her Lasix dose will be decreased to every other day. She will continue with her present dose of magnesium oxide and Dr. Joyner can monitor magnesium level at the long-term. B12 level returned elevated at 1133. Anemia testing results were otherwise pending at time of discharge. Her B12 dose will be decreased. On August 21 I felt she was stable for discharge back to [facility] where she will follow with Dr. Joyner. She will continue with antibiotic and probiotic for 5 additional days at discharge. - Time Spent with Patient Total time spent providing and/or coordinating discharge services: - Constitutional Vitals: Temp Pulse Resp BP Pulse Ox 99.2 F 69 18 156/70 97 08/20/17 21:00 08/20/17 21:00 08/20/17 21:00 08/20/17 21:00 08/20/17 21:00
--- NOTE | 2017-08-21 09:39 | Physician Discharge Referral ---
[facility] Referral Info Transfer To: [facility] Provider in Charge: Julio Provider in Charge after Transfer: PCP (Anthony Joyner M.D.) - Diagnosis (1) Facial cellulitis Priority: Primary Status: Acute (2) Hypertension Priority: Secondary Status: Acute (3) DM type 2 (diabetes mellitus, type 2) Priority: Secondary Status: Chronic (4) CKD (chronic kidney disease) stage 3, GFR 30-59 ml/min Priority: Secondary Status: Chronic (5) Hypothyroid Priority: Secondary Status: Acute (6) Hypomagnesemia Priority: Secondary Status: Acute (7) Anemia Priority: Secondary Status: Acute Prognosis: Good Aware of Diagnosis: Patient Aware of Prognosis: Patient - Transfer Medications Prescriptions: Clindamycin HCl 300 mg PO Q8H 5 Days capsule Doxycycline 100 mg PO BID 5 Days capsule Lactobacillus Acidophilus [Digestive Probiotic] 1 each PO BID 5 Days capsule Home Medications: Acetaminophen [Tylenol] 325 mg PO Q6HR PRN 05/05/16 [History] Allopurinol [Zyloprim] 150 mg PO DAILY 05/05/16 [History] Aspirin [Lo-Dose Aspirin EC] 81 mg PO QAM 05/05/16 [History] Atorvastatin [Lipitor] 10 mg PO HS 05/05/16 [History] Baclofen [Lioresal] 10 mg PO TID PRN 05/05/16 [History] Carbidopa/Levodopa ER 50/200 [Sinemet ER 50-200 Tab] 1 each PO TID 05/05/16 [ History] Fenofibrate 200 mg PO QAM 05/05/16 [History] HYDROcodone/Acet 5/325 mg [[place] 5-325 mg] 1 tab PO BID PRN 05/05/16 [History] Insulin ASPART [Novolog] 0 unit SQ TIDWM 05/05/16 [History] Losartan Potassium [Cozaar] 25 mg PO DAILY 05/05/16 [History] Magnesium Oxide [Magnesium] 500 mg PO BID 05/05/16 [History] Ondansetron HCl 4 mg PO Q4H PRN 05/05/16 [History] Renal Vitamin [Renal Caps Softgel] 1 mg PO DAILY 05/05/16 [History] Venlafaxine HCl [Effexor Xr] 225 mg PO HS 05/05/16 [History] hydrOXYzine pamoate [HydrOXYzine Pamoate] 25 mg PO Q6H 05/05/16 [History] Dextran 70/Hypromellose [Artificial Tears Eye Drops] 1 drop OP BID 03/17/17 [ History] Insulin Regular, Human [Novolin R] 6 unit SQ TID 03/17/17 [History] Metoprolol [Lopressor] 25 mg PO DAILY 03/17/17 [History] Sennosides/Docusate Sodium [Senna-S Tablet] 2 each PO BID 03/17/17 [History] Insulin DETEMIR [Levemir] 10 unit SQ BID #0 03/18/17 [Rx] Levothyroxine [Synthroid] 100 mcg PO 0630 365 Days tablet 03/18/17 [Rx] Pantoprazole Sodium 40 mg PO DAILY #0 03/18/17 [Rx] Calcium Polycarbophil [Fiber Laxative] 625 mg PO BID 08/18/17 [History] Ammonium Lactate [Lac-Hydrin Five] 226 gm TP Q48H #0 08/21/17 [Rx] Clindamycin HCl 300 mg PO Q8H 5 Days capsule 08/21/17 [Rx] Cyanocobalamin (Vitamin B-12) [Vitamin B-12] 1,000 mcg SL QWEEK #0 08/21/17 [Rx] Doxycycline 100 mg PO BID 5 Days capsule 08/21/17 [Rx] Furosemide [Lasix] 20 mg PO Q48H #0 08/21/17 [Rx] Lactobacillus Acidophilus [Digestive Probiotic] 1 each PO BID 5 Days capsule [Rx] Allergies/Adverse Reactions: 3 Allergy/AdvReac Type Severity Reaction Status Date / Time aminophylline Allergy See Verified 08/18/17 08:43 Comments Benzoate Analogues Allergy See Verified 08/18/17 08:43 Comments clavulanic acid Allergy See Verified 08/18/17 08:43 Comments colistin [From Coly-Mycin S] Allergy See Verified 08/18/17 08:43 Comments disulfiram [From Antabuse] Allergy See Verified 08/18/17 08:43 Comments Ethanolamine Allergy See Verified 08/18/17 08:43 Comments ethylenediamine Allergy See Verified 08/18/17 08:43 Comments hepatitis A virus vaccine Allergy See Verified 08/18/17 08:43 [From Twinrix] Comments hepatitis B virus vaccine, Allergy See Verified 08/18/17 08:43 recombin Comments [From Twinrix] hydrocortisone Allergy See Verified 08/18/17 08:43 [From Coly-Mycin S] Comments [place] encephalitis vaccine Allergy See Verified 08/18/17 08:43 [From Je-Vax] Comments Medrysone [From Liquifilm] Allergy See Verified 08/18/17 08:43 Comments Merbromin Allergy See Verified 08/18/17 08:43 Comments Mercury (Elemental) Allergy See Verified 08/18/17 08:43 Comments Neomycin [From Coly-Mycin S] Allergy See Verified 08/18/17 08:43 Comments oxymetazoline Allergy See Verified 08/18/17 08:43 [From Kev-Synephrine Comments (phenylephrine)] phenylephrine Allergy See Verified 08/18/17 08:43 [From Kev-Synephrine Comments (phenylephrine)] Piperazine Allergy See Verified 08/18/17 08:43 Comments piroxicam Allergy See Verified 08/18/17 08:43 Comments Tetanus Vaccines and Toxoid Allergy See Verified 08/18/17 08:43 [Tetanus Vaccines & Toxoid] Comments thimerosal Allergy See Verified 08/18/17 08:43 Comments Thonzonium Allergy See Verified 08/18/17 08:43 [From Coly-Mycin S] Comments Triethylenemelamine Allergy See Verified 08/18/17 08:43 Comments Amoxicillin AdvReac Abdominal Verified 08/18/17 08:43 Pain diphenhydramine AdvReac Itching Verified 08/18/17 08:43 [From Benadryl] naproxen AdvReac Abdominal Verified 08/18/17 08:43 Pain sulfamethoxazole AdvReac Abdominal Verified 08/18/17 08:43 [From Bactrim] Pain trimethoprim [From Bactrim] AdvReac Abdominal Verified 08/18/17 08:43 Pain - Respiratory Orders Smoking Cessation: Smoking cessation has been advised. For more information, call the [place] Tobacco Quit Line at 8-937-WWNT-NOW. - Rehabiliation Orders Rehab Potential: Good - Diet Orders Regular CERTIFICATION: I certify that the transfer of the above named patient to an Extended Care Facility is necessary for the continuing treatment of the diagnosis listed. The above information is true and accurate reflection of patient's current condition. Confidential - Redisclosure prohibited without a patient's written consent.
[2017-08-21 09:49] LABS: BUN/Creatinine Ratio 20 (6-26); Blood Urea Nitrogen 14 mg/dL (7-20); Calcium 8.7 mg/dL (8.6-10.8); Carbon Dioxide 24 mEq/L (19-29); Chloride 106 mEq/L (98-109); Glucose 69 mg/dL (70-99); Magnesium 1.3 mg/dL (1.6-2.6); Osmolality,Calculated 283 (280-300); Potassium 3.5 mEq/L (3.5-4.5); eGFR For African Americans > 60 (> 60); eGFR For Non-African Americans > 60 (> 60)
[2017-08-21 10:22] LABS: Basophils % 0.8 %; Eosinophils # 0.1 K/mcL (0.0-0.6); Eosinophils % 2.3 %; Hematocrit 28.4 % (35.3-44.9); Hemoglobin 9.6 g/dL (11.5-15.4); Immature Granulocytes % 0.5 % (0-4); Lymphocytes % 25.1 %; Mean Corpuscular HGB Conc 33.8 g/dL (31.6-35.5); Mean Corpuscular Hemoglobin 32.3 pg (28.0-33.3); Mean Corpuscular Volume 95.6 fL (83.0-100.0); Mean Platelet Volume 10.1 fL (9.4-12.4); Monocytes # 0.5 K/mcL (0.0-1.3); Monocytes % 11.7 %; Neutrophils # 2.3 K/mcL (1.6-8.9); Platelet Count 149 K/mcL (140-400); Red Blood Count 2.97 M/mcL (3.82-4.97); Red Cell Distribution Width 13.1 % (11.5-14.5); Segmented Neutrophils % 59.6 %
[2017-08-21 10:24] LABS: Sodium 137 mEq/L (136-145)
[2017-08-21 10:25] VITALS: BP 119/62
[2017-08-21 10:35] LABS: Platelet Estimate Normal (Normal)
[2017-08-21 11:15] LABS: Ferritin > 1350 ng/ml (10-120)
[2017-08-21 11:16] LABS: % Iron Saturation 5 % (15-50); Iron 14 mcg/dL (50-170); Transferrin 196 mg/dL (203-362)
== END 2017-08-21 10:45 | DRG 603 ==
LOC: EMEROOPIK 08:20 → INPPIK 08:20
PROVIDERS: ADMIT Internal Medicine; ATTEND Internal Medicine

== ENCOUNTER 2018-09-30 08:20 | Observation (INO) ==
[2018-09-30] MEDS ORDERED: 0.9 % Sodium Chloride 1,000 ML IVC SCH ×2 (08:30→12:31)
--- NOTE | 2018-09-30 08:35 | Emergency Department Note ---
Disposition Clinical Impression: Pneumonia, Dehydration Disposition: Admitted As Inpatient Condition: Good Time of Disposition: 10:30 Fever HPI - General Chief Complaint: ED Fever Stated Complaint: fever, shortness of breath Time Seen by Provider: 09/30/18 08:22 Source: patient, EMS Mode of arrival: EMS Limitations: no limitations Nursing Notes Reviewed: Yes Vital Signs Reviewed: Yes - History of Present Illness HPI Narrative: Patient arrives to the senior living with a report of fever coughing over the past couple of days. They are concerned she might have pneumonia. The patient denies any shortness of breath and a bit says she has been coughing had a fever denies any urinary symptoms. Pt Subjective Complaint: fever, other (cough) Onset (ago): day(s) (a couple of days) Temperature Source: oral Associated symptoms: Reports: chills, myalgias, headache (She reportedly fell a week or so ago and had a workup at that point but has progressively complained more of a headache since that time), cough. Denies: stiff neck, chest pain, abdominal pain Improves with: acetaminophen Worsens with: nothing - Related Data Home Medications Medication Instructions Recorded Confirmed Acetaminophen [Tylenol] 325 mg PO Q6HR PRN 05/05/16 09/30/18 Allopurinol [Zyloprim] 150 mg PO DAILY 05/05/16 09/30/18 Aspirin [Lo-Dose Aspirin EC] 81 mg PO QAM 05/05/16 09/30/18 Atorvastatin [Lipitor] 10 mg PO HS 05/05/16 09/30/18 Carbidopa/Levodopa ER 50/200 1 each PO TID 05/05/16 09/30/18 [Sinemet ER 50-200 Tab] HYDROcodone/Acet 5/325 mg [[place] 1 tab PO BID PRN 05/05/16 09/30/18 5-325 mg] Insulin ASPART [Novolog] 0 unit SQ TIDWM 05/05/16 09/30/18 Losartan Potassium [Cozaar] 25 mg PO DAILY 05/05/16 09/30/18 Magnesium Oxide [Magnesium] 500 mg PO BID 05/05/16 09/30/18 Renal Vitamin [Renal Caps Softgel] 1 mg PO DAILY 05/05/16 09/30/18 Venlafaxine HCl [Effexor Xr] 150 mg PO HS 05/05/16 08/29/18 Dextran 70/Hypromellose 1 drop OP BID 03/17/17 09/30/18 [Artificial Tears Eye Drops] Insulin Regular, Human [Novolin R] 6 unit SQ TID 03/17/17 09/30/18 Metoprolol [Lopressor] 25 mg PO DAILY 03/17/17 09/30/18 Calcium Polycarbophil [Fiber 625 mg PO BID 08/18/17 09/30/18 Laxative] Ropinirole HCl [Requip] 0.25 mg PO HS 08/29/18 09/30/18 Sennosides [Senna] 8.6 mg PO BID 08/29/18 09/30/18 hydrOXYzine pamoate [HydrOXYzine 25 mg PO Q6H PRN 08/29/18 08/29/18 Pamoate] Previous Rx's Medication Instructions Recorded Insulin DETEMIR [Levemir] 10 unit SQ BID #0 03/18/17 Levothyroxine [Synthroid] 100 mcg PO 0630 365 Days tablet 03/18/17 Pantoprazole Sodium 40 mg PO DAILY #0 03/18/17 Ammonium Lactate [Lac-Hydrin Five] 226 gm TP Q48H #0 08/21/17 Cyanocobalamin (Vitamin B-12) 1,000 mcg SL QWEEK #0 08/21/17 [Vitamin B-12] Furosemide [Lasix] 20 mg PO Q48H #0 08/21/17 Allergies Allergy/AdvReac Type Severity Reaction Status Date / Time aminophylline Allergy See Verified 08/18/17 08:43 Comments Benzoate Analogues Allergy See Verified 08/18/17 08:43 Comments clavulanic acid Allergy See Verified 08/18/17 08:43 Comments colistin [From Coly-Mycin S] Allergy See Verified 08/18/17 08:43 Comments disulfiram [From Antabuse] Allergy See Verified 08/18/17 08:43 Comments Ethanolamine Allergy See Verified 08/18/17 08:43 Comments ethylenediamine Allergy See Verified 08/18/17 08:43 Comments hepatitis A virus vaccine Allergy See Verified 08/18/17 08:43 [From Twinrix] Comments hepatitis B virus vaccine, Allergy See Verified 08/18/17 08:43 recombin Comments [From Twinrix] hydrocortisone Allergy See Verified 08/18/17 08:43 [From Coly-Mycin S] Comments Urdu encephalitis vaccine Allergy See Verified 08/29/18 19:44 [From Je-Vax] Comments Medrysone [From Liquifilm] Allergy See Verified 08/29/18 19:44 Comments Merbromin Allergy See Verified 08/29/18 19:44 Comments Mercury (Elemental) Allergy See Verified 08/29/18 19:44 Comments Neomycin [From Coly-Mycin S] Allergy See Verified 08/29/18 19:44 Comments oxymetazoline Allergy See Verified 08/29/18 19:44 [From Kev-Synephrine Comments (phenylephrine)] phenylephrine Allergy See Verified 08/29/18 19:44 [From Kev-Synephrine Comments (phenylephrine)] Piperazine Allergy See Verified 08/29/18 19:44 Comments piroxicam Allergy See Verified 08/29/18 19:44 Comments Tetanus Vaccines and Toxoid Allergy See Verified 08/29/18 19:44 [Tetanus Vaccines & Toxoid] Comments thimerosal Allergy See Verified 08/29/18 19:46 Comments Thonzonium Allergy See Verified 08/29/18 19:46 [From Coly-Mycin S] Comments Triethylenemelamine Allergy See Verified 08/29/18 19:46 Comments Amoxicillin AdvReac Abdominal Verified 08/29/18 19:46 Pain diphenhydramine AdvReac Itching Verified 08/29/18 19:46 [From Benadryl] naproxen AdvReac Abdominal Verified 08/29/18 19:46 Pain sulfamethoxazole AdvReac Abdominal Verified 08/29/18 19:46 [From Bactrim] Pain trimethoprim [From Bactrim] AdvReac Abdominal Verified 08/29/18 19:46 Pain All systems ED: reviewed and negative except as stated. Review of Systems: As Per HPI Constitutional: Reports: as per HPI, fever, chills Eyes: Reports: as per HPI ENT ED: Denies: ear pain, throat pain, dental pain, hearing loss, epistaxis, congestion, dysphagia Cardiovascular: Denies: chest pain, palpitations, dyspnea on exertion, edema, syncope Respiratory: Reports: as per HPI, cough Gastrointestinal: Denies: abdominal pain, nausea, vomiting, diarrhea, constipation, hematemesis, melena, hematochezia Genitourinary: Denies: dysuria, frequency, hematuria, discharge Musculoskeletal: Denies: back pain, neck pain, arthralgia, myalgia Integumentary: Denies: rash, abrasion, lesions Neurological: Reports: as per HPI, headache. 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 - Social History Smoking Status: Former smoker Alcohol use: Reports: none Drug use: Reports: none Physical Exam - General Limitations: no limitations General appearance: alert, in no apparent distress - Head Head exam: atraumatic, normocephalic, normal inspection - Eye Eye exam: Present: normal appearance, PERRL, EOMI - ENT ENT exam: normal exam, normal oropharynx, mucous membranes moist - Neck Neck exam: Present: normal inspection, full ROM, trachea midline - Chest Chest inspection: Present: normal inspection, symmetric chest wall rise - Respiratory Respiratory exam: Present: normal lung sounds bilaterally - Cardiovascular Cardiovascular exam: Present: regular rate, normal rhythm, normal heart sounds - Abdominal Exam Abdominal exam: Present: soft, Non-Tender. Absent: tenderness, distention, guarding, rebound, rigidity - Extremities Exam Extremities exam: Present: full ROM, tenderness ( tenderness to the right hip with small area of ecchymosis.), pedal edema (Chronic pedal edema with some anterior lower gautam erythema. It appears more consistent at this point with chronic edema rather than cellulitis however the patient will be on antibiotics that will cover this anyway) - Back Exam Back exam: Present: normal inspection - Neurological Exam Neurological exam: Present: alert, oriented X3 - Psychiatric Psychiatric exam: Present: normal affect, normal mood - Skin Skin exam: Present: warm, dry, intact Course Vital Signs Temperature 98.9 F 09/30/18 08:22 Pulse Rate 98 09/30/18 08:22 Respiratory Rate 26 09/30/18 08:22 Blood Pressure 152/63 09/30/18 08:22 O2 Sat by Pulse Oximetry 97 09/30/18 08:22 Temperature 98.9 F 09/30/18 08:22 Pulse Rate 96 09/30/18 10:08 Respiratory Rate 20 09/30/18 10:08 Blood Pressure 130/94 09/30/18 10:08 O2 Sat by Pulse Oximetry 95 09/30/18 10:08 Oxygen Delivery Oxygen Delivery Nasal Cannula Fever - MDM Narrative Medical decision making narrative: I reviewed the patient's medication list I discussed the case with Dr. Kim who is graciously accepted admission to the hospital - Lab Data Lab results reviewed: Yes I reviewed the patient's lab results. Result diagrams: 09/30/18 08:58 09/30/18 08:58 Lab Results 09/30/18 09/30/18 09/30/18 Range/Units 08:58 08:58 09:32 WBC 19.8 H (4.3-11.1) K/mcL RBC 3.86 (3.82-4.97) M/mcL Hgb 12.2 (11.5-15.4) g/dL Hct 36.6 (35.3-44.9) % MCV 94.8 (83.0-100.0) fL MCH 31.6 (28.0-33.3) pg MCHC 33.3 (31.6-35.5) g/dL RDW 14.6 H (11.5-14.5) % Plt Count 174 (140-400) K/mcL MPV 9.6 (9.4-12.4) fL Immature Gran % 0.5 (0-4) % Seg Neutrophils % 89.2 % Lymphocytes % 4.9 % Monocytes % 5.1 % Eosinophils % 0.1 % Basophils % 0.2 % Neutrophils # 17.7 H (1.6-8.9) K/mcL Lymphocytes # 1.0 (0.6-4.6) K/mcL Monocytes # 1.0 (0.0-1.3) K/mcL Eosinophils # 0.0 (0.0-0.6) K/mcL Basophils # 0.0 (0.0-0.2) K/mcL Sodium 135 L (136-145) mEq/L Potassium 4.1 (3.5-5.1) mEq/L Chloride 97 L (98-107) mEq/L Carbon Dioxide 30 H (23-29) mEq/L BUN 28 H (8-23) mg/dL Creatinine 0.95 (0.60-1.20) mg/dL Est GFR ( Amer) > 60 (> 60) Est GFR (Non-Af Amer) 58 L (> 60) BUN/Creatinine Ratio 29 H (6-26) Glucose 147 H (70-105) mg/dL Calculated Osmolality 288 (280-300) Calcium 9.6 (8.6-10.3) mg/dL Total Bilirubin 1.1 H (0.3-1.0) mg/dL AST 29 (13-39) Units/L ALT 13 (7-52) Units/L Alkaline Phosphatase 111 H (34-104) Units/L Troponin I < 0.03 (< 0.04) ng/mL Serum Total Protein 6.8 (6.4-8.9) g/dL Albumin 3.3 L (3.5-5.7) g/dL Globulin 3.5 (2.4-3.5) g/dL Albumin/Globulin Ratio 0.9 L (1.1-2.2) Urine Color Yellow (Yellow) Urine Clarity Clear (Clear) Urine pH 7.5 (5.0-8.0) pH Units Ur Specific [place] 1.020 (1.010-1.025) Urine Protein 100 H (Neg-Trace) mg/dL Urine Glucose (UA) Normal (Normal) mg/dL Urine Ketones Negative (Negative) mg/dL Urine Blood Negative (Negative) Urine Nitrite Negative (Negative) Urine Bilirubin Negative (Negative) Urine Urobilinogen Normal (Normal) mg/dL Ur Leukocyte Esterase Negative (Negative) Urine Microscopic RBC 0-3 (0-3) per hpf Urine Microscopic WBC 3-5 H (0-3) per hpf Ur Squamous Epith Cells Few (None-Few) per lpf Ur Transition Epith Cell Few (None-Few) per hpf Urine Bacteria Few (None-Few) per hpf Urine Mucus Few (Few) Ur Culture Indicated? NO (NO) - Radiology Data Radiology results reviewed: Yes I reviewed the patient's radiology results. - EKG Data EKG attestation: Yes I reviewed and interpreted this EKG. EKG results narrative: EKG shows sinus rhythm with left bundle branch block. Rate is 96 bpm OR inter ashwini 182 ms. QS duration 122 ms QT interval 316 QTC 400 ms R axis of -[address] changes noted
[2018-09-30 09:03] LABS: Basophils % 0.2 %; Eosinophils % 0.1 %; Hematocrit 36.6 % (35.3-44.9); Hemoglobin 12.2 g/dL (11.5-15.4); Immature Granulocytes % 0.5 % (0-4); Lymphocytes % 4.9 %; Mean Corpuscular HGB Conc 33.3 g/dL (31.6-35.5); Mean Corpuscular Hemoglobin 31.6 pg (28.0-33.3); Mean Corpuscular Volume 94.8 fL (83.0-100.0); Mean Platelet Volume 9.6 fL (9.4-12.4); Monocytes % 5.1 %; Neutrophils # 17.7 K/mcL (1.6-8.9); Platelet Count 174 K/mcL (140-400); Red Blood Count 3.86 M/mcL (3.82-4.97); Red Cell Distribution Width 14.6 % (11.5-14.5); Segmented Neutrophils % 89.2 %
[2018-09-30 09:21] LABS: Alanine Aminotransferase 13 Units/L (7-52); Albumin 3.3 g/dL (3.5-5.7); Albumin/Globulin Ratio 0.9 (1.1-2.2); Alkaline Phosphatase 111 Units/L (34-104); Aspartate Amino Transferase 29 Units/L (13-39); BUN/Creatinine Ratio 29 (6-26); Bilirubin,Total 1.1 mg/dL (0.3-1.0); Blood Urea Nitrogen 28 mg/dL (8-23); Calcium 9.6 mg/dL (8.6-10.3); Carbon Dioxide 30 mEq/L (23-29); Chloride 97 mEq/L (98-107); Globulin 3.5 g/dL (2.4-3.5); Glucose 147 mg/dL (70-105); Osmolality,Calculated 288 (280-300); Potassium 4.1 mEq/L (3.5-5.1); Sodium 135 mEq/L (136-145); Total Protein 6.8 g/dL (6.4-8.9); Troponin I < 0.03 ng/mL (< 0.04); eGFR For Non-African Americans 58 (> 60)
[2018-09-30 09:43] LABS: Bilirubin,Urine Negative (Negative); Blood,Urine Negative (Negative); Clarity,Urine Clear (Clear); Color,Urine Yellow (Yellow); Glucose,Urine (UA) Normal (Normal); Ketones,Urine Negative (Negative); Leukocyte Esterase,Urine Negative (Negative); Nitrite,Urine Negative (Negative); PH,Urine 7.5 pH Units (5.0-8.0); Protein,Urine 100 mg/dL (Neg-Trace); Urobilinogen,Urine Normal (Normal)
[2018-09-30 09:50] LABS: Bacteria,Urine Few per hpf (None-Few); Mucus,Urine Few (Few); RBC,Urine 0-3 per hpf (0-3); Squamous Epithelial Cell,Urine Few per lpf (None-Few); Transitional Epi Cells,Urine Few per hpf (None-Few)
[2018-09-30] MEDS ORDERED: Levofloxacin 500 MG/100 ML 500 MG/100 ML BAG IVPB ONE (09:55)
[2018-09-30] MEDS ORDERED: Ipratropium/Albuterol Neb 3 ML IH SCH (12:00)
[2018-09-30] MEDS ORDERED: Naloxone 0.4 MG/ML INJ IVP PRN (12:31)
[2018-09-30] MEDS ORDERED: *HR* HYDROcodone/Acet 5/325 mg TABLET PO PRN (12:31)
[2018-09-30] MEDS ORDERED: hydrOXYzine pamoate 25 MG CAPSULE PO PRN (12:31)
[2018-09-30] MEDS: Acetaminophen 325 MG TABLET PO PRN ×2 (14:04→17:46)
[2018-09-30] MEDS: Carbidopa/Levodopa ER 50/200 TABLET PO SCH ×2 (14:05→21:46)
[2018-09-30] MEDS ORDERED: Ammonium Lactate 30 APPL/225 GM BOTTLE TP SCH (14:30)
[2018-09-30] MEDS: Ipratropium/Albuterol Neb 3 ML IH SCH ×2 (15:27→20:33)
--- NOTE | 2018-09-30 15:27 | Internal Med History&Physical ---
Date of Encounter: 09/30/18 Time of Encounter: 15:00 Assessment and Plan (1) Pneumonia Current visit: Yes Status: Acute She was started on Levaquin in emergency room. This will be continued with lactobacillus. Qualifiers: Pneumonia type: due to unspecified organism Laterality: right Lung location: middle lobe of lung Qualified Code(s): J18.1 - Lobar pneumonia, unspecified organism (2) CKD (chronic kidney disease) stage 3, GFR 30-59 ml/min Current visit: No Status: Chronic Renal indices will be monitored. (3) Hypothyroid Current visit: No Status: Acute Check TSH in a.m. Qualifiers: Hypothyroidism type: unspecified Qualified Code(s): E03.9 - Hypothyroidism, unspecified (4) Hypertension Current visit: No Status: Chronic Will continue metoprolol but hold Cozaar and see if azotemia improves. Monitor blood pressure. Qualifiers: Hypertension type: essential hypertension Qualified Code(s): I10 - Essential (primary) hypertension (5) DM type 2 (diabetes mellitus, type 2) Current visit: No Status: Chronic Check hemoglobin A1c in a.m. Qualifiers: Diabetes mellitus fpc insulin use: with dedicated intermodal truck driver use Diabetes mellitus complication status: with kidney complications Diabetes mellitus complication detail: with chronic kidney disease Chronic kidney disease stage: stage 3 (moderate) Qualified Code(s): E11.22 - Type 2 diabetes mellitus with diabetic chronic kidney disease; N18.3 - Chronic kidney disease, stage 3 (moderate); N18.3 - Chronic kidney disease, stage 3 (moderate); Z79.4 - penitentiary (current) use of insulin; Z79.4 - penitentiary (current) use of insulin; Z79.4 - emt intermediate (current) use of insulin; Z79.4 - emt intermediate (current) use of insulin (6) Hypomagnesemia Current visit: No Status: Acute Check magnesium level in a.m. (7) Weight loss Current visit: Yes Status: Acute Check TSH in a.m. Additional workup including CT of chest abdomen pelvis may be needed. (8) Parkinsons disease Current visit: Yes Status: Acute Continue Sinemet Internal Medicine - H&P: HPI Chief complaint: Cough and dyspnea Admitted From: Emergency Dept Plans for Post Hospital Care: Home History of present illness: Ms. Barron is a 72 year old female who came to emergency room after having increased dyspnea with cough productive of green and yellow sputum onset 2 days earlier. She reports some discomfort in her right chest secondary to coughing. She is uncertain if she had fever. She denies hemoptysis. She was evaluated in emergency room and was felt to have right lung pneumonia. She was admitted to [facility] floor for ongoing care needs. She quit smoking approximately age 36 and has no known chronic lung disease. She states she had a "right lung nodule" seen in the past. She has ANGELINA and wears BiPAP at bedtime. Past Med Surg Social Fam HX - Past Medical History Medical history: arthritis, atrial fibrillation, CHF, COPD, diabetes, hypertension, TIA, other Additional medical history: anemia Psychiatric history: no psych history - Past Surgical History Surgical History: Additional surgical history: left nephrectomy. cyst removed from back - Social History Smoking Status: Former smoker Smokeless Tobacco Status: No Alcohol use: none Drug use: none - Family History Mother History Unknown: Yes Internal Medicine - H&P: Meds Acetaminophen [Tylenol] 325 mg PO Q6HR PRN 05/05/16 [History] Allopurinol [Zyloprim] 150 mg PO DAILY 05/05/16 [History] Aspirin [Lo-Dose Aspirin EC] 81 mg PO QAM 05/05/16 [History] Atorvastatin [Lipitor] 10 mg PO HS 05/05/16 [History] Carbidopa/Levodopa ER 50/200 [Sinemet ER 50-200 Tab] 1 each PO TID 05/05/16 [History] HYDROcodone/Acet 5/325 mg [[place] 5-325 mg] 1 tab PO BID PRN 05/05/16 [History] Insulin ASPART [Novolog] 0 unit SQ TIDWM 05/05/16 [History] Losartan Potassium [Cozaar] 25 mg PO DAILY 05/05/16 [History] Magnesium Oxide [Magnesium] 500 mg PO BID 05/05/16 [History] Renal Vitamin [Renal Caps Softgel] 1 mg PO DAILY 05/05/16 [History] Venlafaxine HCl [Effexor Xr] 150 mg PO HS 05/05/16 [History] Dextran 70/Hypromellose [Artificial Tears Eye Drops] 1 drop OP BID 03/17/17 [History] Insulin Regular, Human [Novolin R] 6 unit SQ TID 03/17/17 [History] Metoprolol [Lopressor] 25 mg PO DAILY 03/17/17 [History] Insulin DETEMIR [Levemir] 10 unit SQ BID #0 03/18/17 [Rx] Levothyroxine [Synthroid] 100 mcg PO 0630 365 Days tablet 03/18/17 [Rx] Pantoprazole Sodium 40 mg PO DAILY #0 03/18/17 [Rx] Calcium Polycarbophil [Fiber Laxative] 625 mg PO BID 08/18/17 [History] Ammonium Lactate [Lac-Hydrin Five] 226 gm TP Q48H #0 08/21/17 [Rx] Cyanocobalamin (Vitamin B-12) [Vitamin B-12] 1,000 mcg SL QWEEK #0 08/21/17 [Rx] Furosemide [Lasix] 20 mg PO Q48H #0 08/21/17 [Rx] Ropinirole HCl [Requip] 0.25 mg PO HS 08/29/18 [History] Sennosides [Senna] 8.6 mg PO BID 08/29/18 [History] hydrOXYzine pamoate [HydrOXYzine Pamoate] 25 mg PO Q6H PRN 08/29/18 [History] Allergy/AdvReac Type Severity Reaction Status Date / Time aminophylline Allergy See Verified 08/18/17 08:43 Comments Benzoate Analogues Allergy See Verified 08/18/17 08:43 Comments clavulanic acid Allergy See Verified 08/18/17 08:43 Comments colistin [From Coly-Mycin S] Allergy See Verified 08/18/17 08:43 Comments disulfiram [From Antabuse] Allergy See Verified 08/18/17 08:43 Comments Ethanolamine Allergy See Verified 08/18/17 08:43 Comments ethylenediamine Allergy See Verified 08/18/17 08:43 Comments hepatitis A virus vaccine Allergy See Verified 08/18/17 08:43 [From Twinrix] Comments hepatitis B virus vaccine, Allergy See Verified 08/18/17 08:43 recombin Comments [From Twinrix] hydrocortisone Allergy See Verified 08/18/17 08:43 [From Coly-Mycin S] Comments Rwandan encephalitis vaccine Allergy See Verified 08/29/18 19:44 [From Je-Vax] Comments Medrysone [From Liquifilm] Allergy See Verified 08/29/18 19:44 Comments Merbromin Allergy See Verified 08/29/18 19:44 Comments Mercury (Elemental) Allergy See Verified 08/29/18 19:44 Comments Neomycin [From Coly-Mycin S] Allergy See Verified 08/29/18 19:44 Comments oxymetazoline Allergy See Verified 08/29/18 19:44 [From Kev-Synephrine Comments (phenylephrine)] phenylephrine Allergy See Verified 08/29/18 19:44 [From Kev-Synephrine Comments (phenylephrine)] Piperazine Allergy See Verified 08/29/18 19:44 Comments piroxicam Allergy See Verified 08/29/18 19:44 Comments Tetanus Vaccines and Toxoid Allergy See Verified 08/29/18 19:44 [Tetanus Vaccines & Toxoid] Comments thimerosal Allergy See Verified 08/29/18 19:46 Comments Thonzonium Allergy See Verified 08/29/18 19:46 [From Coly-Mycin S] Comments Triethylenemelamine Allergy See Verified 08/29/18 19:46 Comments Amoxicillin AdvReac Abdominal Verified 08/29/18 19:46 Pain diphenhydramine AdvReac Itching Verified 08/29/18 19:46 [From Benadryl] naproxen AdvReac Abdominal Verified 08/29/18 19:46 Pain sulfamethoxazole AdvReac Abdominal Verified 08/29/18 19:46 [From Bactrim] Pain trimethoprim [From Bactrim] AdvReac Abdominal Verified 08/29/18 19:46 Pain All Systems PM: A 10-system review of systems was performed and is negative for pertinent findings except as documented above in the HPI. Review of systems: Review of systems from her July 2017 [facility] hospitalization were reviewed and revised as below. Gen.: Her weight has decreased from 91.3 kg on 03/18/2017 to 88.536 kg on admission July 2017 to 74.843 kg now. She has no explanation for the weight loss. Cardiovascular: She has a history of hypertension and echocardiogram 10/05/2016 which showed LVEF of 60%. There was reported moderate diastolic dysfunction with E/A ratio 1.1. There was mild mitral regurgitation. She is uncertain if she had a DVT many years ago. She denies PA or pulmonary embolism Respiratory: As per history of present illness GI: She has diagnosis of GERD. She has had cholecystectomy. 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 She has chronic kidney disease and follows with Dr. Shanks Neurologic: She claims she was told she had a stroke from a past head CT report. She was unaware of its time of occurrence. She denies neurologic deficits. She denies seizures. She has diagnoses of Parkinson's disease and restless leg syndrome. She ambulates in the alf with a walker. Endocrine: She was diagnosed with DM 2 approximately age 59. She has hyperlipidemia but denies thyroid disease. Hematology/oncology: She denies blood disorders, cancers or anemia Psychiatric: She has depression but denies anxiety other mental health issues Musk skeletal: She has history of gout and minimal arthritis. She denies other bone joint or muscle disorders. - Constitutional Vitals: Temp Pulse Resp BP Pulse Ox 97.5 F L 93 18 134/62 97 09/30/18 10:30 09/30/18 10:30 09/30/18 11:47 09/30/18 10:30 09/30/18 11:47 Exam: Gen.: She is a well-developed well-nourished female sitting in a chair at bedside who appears dyspneic at rest HEENT: Head is atraumatic and normocephalic. Eyes: EOMI. There is no scleral icterus. Mouth: Mucosa is moist. Neck: Supple and nontender. There is no thyromegaly or adenopathy noted. Heart: Regular rate and approximately 84/m. No murmurs gallops or ectopics are heard. Lungs: She has prolonged expiratory phase and mild wheezing bilaterally. No inspiratory crackles or egophony are heard. Abdomen: Soft and nontender. No masses or guarding are noted. Exam is limited because she is in the seated position. Extremities: There is no cyanosis edema or clubbing noted. Dorsalis pedis and posterior tibial pulses are trace to 1+ palpable bilaterally. Neurologic: Mental status: She is talkative and seems to be a reliable historian. Cranial nerves: Smile is symmetric. Forehead wrinkles bilaterally. Tongue protrudes midline. EOMI. Motor: There is no pronator drift. She has mild tremor rest consistent with Parkinson's disease. Cerebellar: Finger to nose is intact bilaterally. Skin: Warm and dry Internal Med - H&P Results - Labs CBC & Chem 7: 09/30/18 08:58 09/30/18 08:58 Labs: Short CBC 09/30/18 Range/Units 08:58 WBC 19.8 H (4.3-11.1) K/mcL Hgb 12.2 (11.5-15.4) g/dL Hct 36.6 (35.3-44.9) % Plt Count 174 (140-400) K/mcL Neutrophils # 17.7 H (1.6-8.9) K/mcL BMP 09/30/18 08:58 Sodium 135 L Potassium 4.1 Chloride 97 L Carbon Dioxide 30 H BUN 28 H Creatinine 0.95 Glucose 147 H Calcium 9.6 Cardiac Enzymes 09/30/18 Range/Units 08:58 Troponin I < 0.03 (< 0.04) ng/mL Liver Function 09/30/18 Range/Units 08:58 Total Bilirubin 1.1 H (0.3-1.0) mg/dL AST 29 (13-39) Units/L ALT 13 (7-52) Units/L Alkaline Phosphatase 111 H (34-104) Units/L Albumin 3.3 L (3.5-5.7) g/dL Urine 09/30/18 Range/Units 09:32 Urine Color Yellow (Yellow) Urine Clarity Clear (Clear) Urine pH 7.5 (5.0-8.0) pH Units Ur Specific [place] 1.020 (1.010-1.025) Urine Protein 100 H (Neg-Trace) mg/dL Urine Glucose (UA) Normal (Normal) mg/dL - Impressions ITS Impressions Chest X-Ray 09/30/18 08:24 IMPRESSION: New opacity to the right mid lung zone concerning for pneumonia. Follow-up to resolution recommended. Stable cardiomegaly. D/ / 09/30/2018 09:27:52 Jasvir Andrade MD / alyssa Interpreting Provider: Jasvir Andrade MD Head CT 09/30/18 08:24 IMPRESSION: Stable CT brain with no acute intracranial abnormality. D/ / Brian Barillas MD / Brian Barillas MD Interpreting Provider: Brian Barillas MD Hip X-Ray 09/30/18 10:30 IMPRESSION: 1. No acute bony or joint abnormality 2. Mild degenerative changes in the hips bilaterally 3. Degenerative changes in the lower lumbar spine and right SI joint D/ / Brent Guaman MD / Brent Guaman MD Interpreting Provider: Brent Guaman MD
[2018-09-30] MEDS: Insulin Regular, Human 100 UNIT/ML SQ SCH (17:47)
[2018-09-30] MEDS: 0.9 % Sodium Chloride 1,000 ML IVC SCH (18:04)
[2018-09-30] MEDS: rOPINIRole 0.25 MG TABLET PO SCH (21:46)
[2018-09-30] MEDS: Lactobacillus 1 EACH CAP.SPRINK PO SCH (21:46)
[2018-09-30] MEDS: Venlafaxine XR (24 HR) 150 MG CAP.ER.24H PO SCH (21:46)
[2018-09-30] MEDS: Sennosides 8.6 MG TABLET PO SCH (21:46)
[2018-09-30] MEDS: Magnesium Oxide 400 MG TABLET PO SCH (21:46)
[2018-09-30] MEDS: Artificial Tears SOLN 15 ML BOTTLE OP SCH (21:47)
[2018-09-30] MEDS: Insulin DETEMIR 100 UNIT/ML X5UNITS SQ SCH (23:38)
[2018-10-01] MEDS: Ipratropium/Albuterol Neb 3 ML IH SCH ×3 (00:36→08:08)
[2018-10-01 06:29] LABS: Basophils # 0.1 K/mcL (0.0-0.2); Basophils % 0.3 %; Eosinophils # 0.1 K/mcL (0.0-0.6); Eosinophils % 0.3 %; Hemoglobin 9.9 g/dL (11.5-15.4); Immature Granulocytes % 0.8 % (0-4); Lymphocytes # 1.3 K/mcL (0.6-4.6); Lymphocytes % 6.8 %; Mean Corpuscular HGB Conc 31.9 g/dL (31.6-35.5); Mean Corpuscular Hemoglobin 30.4 pg (28.0-33.3); Mean Corpuscular Volume 95.1 fL (83.0-100.0); Mean Platelet Volume 9.7 fL (9.4-12.4); Monocytes # 0.9 K/mcL (0.0-1.3); Monocytes % 4.8 %; Neutrophils # 17.1 K/mcL (1.6-8.9); Platelet Count 146 K/mcL (140-400); Red Blood Count 3.26 M/mcL (3.82-4.97); Red Cell Distribution Width 14.5 % (11.5-14.5)
[2018-10-01 06:47] LABS: Magnesium 1.4 mg/dL (1.6-2.6)
[2018-10-01 06:48] LABS: BUN/Creatinine Ratio 27 (6-26); Blood Urea Nitrogen 22 mg/dL (8-23); Calcium 8.6 mg/dL (8.6-10.3); Carbon Dioxide 28 mEq/L (23-29); Chloride 102 mEq/L (98-107); Glucose 117 mg/dL (70-105); Osmolality,Calculated 284 (280-300); Potassium 3.9 mEq/L (3.5-5.1); Sodium 135 mEq/L (136-145); eGFR For Non-African Americans > 60 (> 60)
[2018-10-01 06:54] LABS: Thyroid Stimulating Hormone 4.467 mcIU/mL (0.340-5.600)
[2018-10-01] MEDS ORDERED: Furosemide 20 MG TABLET PO SCH (08:00)
[2018-10-01] MEDS: Levofloxacin 750 MG/150 ML 750 MG/150 ML BAG IVPB SCH (08:08)
[2018-10-01] MEDS: Insulin DETEMIR 100 UNIT/ML X5UNITS SQ SCH ×2 (08:09→20:05)
[2018-10-01] MEDS: Magnesium Oxide 400 MG TABLET PO SCH ×2 (08:10→20:02)
[2018-10-01] MEDS: Lactobacillus 1 EACH CAP.SPRINK PO SCH ×2 (08:10→20:02)
[2018-10-01] MEDS: Renal Vitamin 1 CAP CAPSULE PO SCH (08:10)
[2018-10-01] MEDS: Carbidopa/Levodopa ER 50/200 TABLET PO SCH ×3 (08:11→20:03)
[2018-10-01] MEDS: Sennosides 8.6 MG TABLET PO SCH ×2 (08:11→20:02)
[2018-10-01] MEDS: Artificial Tears SOLN 15 ML BOTTLE OP SCH ×2 (08:17→21:16)
[2018-10-01] MEDS: Insulin Regular, Human 100 UNIT/ML SQ SCH ×3 (08:17→17:26)
[2018-10-01] MEDS: 0.9 % Sodium Chloride 1,000 ML IVC SCH ×2 (08:20→21:11)
[2018-10-01] MEDS ORDERED: Aspirin Enteric Coated 81 MG Tablet PO SCH (09:00)
--- NOTE | 2018-10-01 09:40 | Internal Med Progress Note ---
Date of Encounter: 10/01/18 Time of Encounter: 10:44 - Assessment and plan (1) Pneumonia Current Visit: Yes Status: Acute Assessment and plan: October 01. Continue Levaquin and lactobacillus. Qualifiers: Pneumonia type: due to unspecified organism Laterality: right Lung location: middle lobe of lung Qualified Code(s): J18.1 - Lobar pneumonia, unspecified organism (2) CKD (chronic kidney disease) stage 3, GFR 30-59 ml/min Current Visit: No Status: Chronic Assessment and plan: October 01. BUN and creatinine improved to 22 and 0.81 respectively with estimated GFR greater than 60. Continue present regimen. (3) Hypothyroid Current Visit: No Status: Acute Assessment and plan: October 01. TSH normal at 4.467. Continue present dose Synthroid. Qualifiers: Hypothyroidism type: unspecified Qualified Code(s): E03.9 - Hypothyroidism, unspecified (4) Hypertension Current Visit: No Status: Chronic Assessment and plan: October 01. Blood pressure stable. Continue metoprolol and hold Cozaar. Qualifiers: Hypertension type: essential hypertension Qualified Code(s): I10 - Essential (primary) hypertension (5) DM type 2 (diabetes mellitus, type 2) Current Visit: No Status: Chronic Assessment and plan: October 01. Hemoglobin A1c 6.2%. Continue Levemir and Accu-Cheks with SSI. Qualifiers: Diabetes mellitus mcfp insulin use: with buttermaker helper use Diabetes mellitus complication status: with kidney complications Diabetes mellitus complication detail: with chronic kidney disease Chronic kidney disease stage: stage 3 (moderate) Qualified Code(s): E11.22 - Type 2 diabetes mellitus with diabetic chronic kidney disease; N18.3 - Chronic kidney disease, stage 3 (moderate); Z79.4 - watermelon inspector (current) use of insulin (6) Hypomagnesemia Current Visit: No Status: Acute Assessment and plan: October 01. Magnesium level low at 1.4. Discontinue omeprazole to improve absorption and continue to monitor level. (7) Weight loss Current Visit: Yes Status: Acute Assessment and plan: October 01. Her weight yesterday of 74.843 kg appears inaccurate. Today's weight of 93.553 kg consistent with previous weights. (8) Parkinsons disease Current Visit: Yes Status: Acute Assessment and plan: October 01. Continue Sinemet (9) Anemia Current Visit: No Status: Acute Assessment and plan: October 01. Hemoglobin has decreased to 9.9 with hydration. Hold aspirin and recheck labs in a.m. Qualifiers: Anemia type: unspecified type Qualified Code(s): D64.9 - Anemia, unspecified - Subjective Interval history: October 01. She has no new complaints. - Constitutional Vitals: Temp Pulse Resp BP Pulse Ox 98.5 F 86 16 124/68 98 10/01/18 06:46 10/01/18 06:46 10/01/18 08:08 10/01/18 06:46 10/01/18 08:44 Exam: She is resting comfortably in bed and appears in no acute distress. Her affect is cheerful. Heart is regular without murmurs gallops or ectopics. Lungs show no wheezing anteriorly. Extremities show no pitting edema. I reviewed her medications and lab results. Internal Medicine: Result - Labs CBC & Chem 7: 10/01/18 06:10 10/01/18 06:10 Labs: Short CBC 10/01/18 Range/Units 06:10 WBC 19.6 H (4.3-11.1) K/mcL Hgb 9.9 L D (11.5-15.4) g/dL Hct 31.0 L (35.3-44.9) % Plt Count 146 (140-400) K/mcL Neutrophils # 17.1 H (1.6-8.9) K/mcL BMP 10/01/18 06:10 Sodium 135 L Potassium 3.9 Chloride 102 Carbon Dioxide 28 BUN 22 Creatinine 0.81 Glucose 117 H Calcium 8.6 Urine 09/30/18 Range/Units 09:32 Urine Color Yellow (Yellow) Urine Clarity Clear (Clear) Urine pH 7.5 (5.0-8.0) pH Units Ur Specific Calvin 1.020 (1.010-1.025) Urine Protein 100 H (Neg-Trace) mg/dL Urine Glucose (UA) Normal (Normal) mg/dL - Impressions Impressions Chest X-Ray 09/30/18 08:24 IMPRESSION: New opacity to the right mid lung zone concerning for pneumonia. Follow-up to resolution recommended. Stable cardiomegaly. D/ / 09/30/2018 09:27:52 Jasvir Adnrade MD / alyssa Interpreting Provider: Jasvir Andrade MD Head CT 09/30/18 08:24 IMPRESSION: Stable CT brain with no acute intracranial abnormality. D/ / Brian Barillas MD / Brian Barillas MD Interpreting Provider: Brian Barillas MD Hip X-Ray 09/30/18 10:30 IMPRESSION: 1. No acute bony or joint abnormality 2. Mild degenerative changes in the hips bilaterally 3. Degenerative changes in the lower lumbar spine and right SI joint D/ / Brent Guaman MD / Brent Guaman MD Interpreting Provider: Brent Guaman MD Chest X-Ray 10/01/18 07:00 IMPRESSION: Slight worsening of edema and multifocal airspace disease. D/ / Margaux Moran MD / Margaux Moran MD Interpreting Provider: Margaux Moran MD Consult Discharge Plan - Plan Referrals: Anthony Joyner MD [Primary Care Provider] -
[2018-10-01 10:16] LABS: Estimated Average Glucose 131 mg/dl; Hemoglobin A1C 6.2 %
[2018-10-01 10:42] LABS: Vitamin B12 568 pg/mL (250-1100)
[2018-10-01 10:52] LABS: Folate > 22.3 ng/mL (3.0-16.0)
[2018-10-01] MEDS ORDERED: Albuterol 2.5 MG/3 ML NEBULIZER IH PRN (10:59)
[2018-10-01] MEDS: Venlafaxine XR (24 HR) 150 MG CAP.ER.24H PO SCH (20:02)
[2018-10-01] MEDS: rOPINIRole 0.25 MG TABLET PO SCH (20:02)
[2018-10-02 06:16] LABS: Basophils % 0.2 %; Eosinophils # 0.3 K/mcL (0.0-0.6); Eosinophils % 2.4 %; Hematocrit 31.1 % (35.3-44.9); Hemoglobin 10.2 g/dL (11.5-15.4); Immature Granulocytes % 0.6 % (0-4); Lymphocytes # 1.4 K/mcL (0.6-4.6); Mean Corpuscular HGB Conc 32.8 g/dL (31.6-35.5); Mean Corpuscular Hemoglobin 31.5 pg (28.0-33.3); Mean Platelet Volume 9.7 fL (9.4-12.4); Monocytes # 0.8 K/mcL (0.0-1.3); Monocytes % 6.7 %; Neutrophils # 9.8 K/mcL (1.6-8.9); Platelet Count 160 K/mcL (140-400); Red Blood Count 3.24 M/mcL (3.82-4.97); Red Cell Distribution Width 14.2 % (11.5-14.5); Segmented Neutrophils % 79.1 %
[2018-10-02 06:40] LABS: BUN/Creatinine Ratio 25 (6-26); Blood Urea Nitrogen 21 mg/dL (8-23); Carbon Dioxide 29 mEq/L (23-29); Chloride 103 mEq/L (98-107); Glucose 61 mg/dL (70-105); Osmolality,Calculated 285 (280-300); Potassium 3.7 mEq/L (3.5-5.1); Sodium 137 mEq/L (136-145); eGFR For Non-African Americans > 60 (> 60)
[2018-10-02] MEDS: Insulin Regular, Human 100 UNIT/ML SQ SCH ×2 (07:36→11:42)
[2018-10-02 08:31] VITALS: BP 117/59
[2018-10-02] MEDS: Artificial Tears SOLN 15 ML BOTTLE OP SCH (08:32)
[2018-10-02] MEDS: Carbidopa/Levodopa ER 50/200 TABLET PO SCH (08:33)
[2018-10-02] MEDS: Lactobacillus 1 EACH CAP.SPRINK PO SCH (08:33)
[2018-10-02] MEDS: Renal Vitamin 1 CAP CAPSULE PO SCH (08:33)
[2018-10-02] MEDS: Sennosides 8.6 MG TABLET PO SCH (08:33)
[2018-10-02] MEDS: Magnesium Oxide 400 MG TABLET PO SCH (08:34)
[2018-10-02] MEDS: Levofloxacin 750 MG/150 ML 750 MG/150 ML BAG IVPB SCH (08:35)
[2018-10-02] MEDS: Insulin DETEMIR 100 UNIT/ML X5UNITS SQ SCH (08:50)
[2018-10-02] MEDS ORDERED: Cyanocobalamin (B-12) 1,000 MCG TABLET PO SCH (09:00)
--- NOTE | 2018-10-02 09:36 | Discharge Summary ---
Orders not resulted at time of discharge: Pending orders 09/30/18 08:24 ECG 12 lead ECG [ECG] Stat 09/30/18 08:48 Culture,Blood [BC] Stat Date of Encounter: 10/02/18 Time of Encounter: 09:25 - Discharge Diagnosis (1) Pneumonia Priority: Primary Status: Acute Qualifiers: Pneumonia type: due to unspecified organism Laterality: right Lung location: middle lobe of lung Qualified Code(s): J18.1 - Lobar pneumonia, unspecified organism (2) CKD (chronic kidney disease) stage 3, GFR 30-59 ml/min Priority: Secondary Status: Chronic (3) Hypothyroid Priority: Secondary Status: Chronic Qualifiers: Hypothyroidism type: unspecified Qualified Code(s): E03.9 - Hypothyroidism, unspecified (4) Hypertension Priority: Secondary Status: Chronic Qualifiers: Hypertension type: essential hypertension Qualified Code(s): I10 - Essential (primary) hypertension (5) DM type 2 (diabetes mellitus, type 2) Priority: Secondary Status: Chronic Qualifiers: 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: with 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 Diabetes mellitus complication status: with kidney complications Diabetes mellitus complication detail: with chronic kidney disease Chronic kidney disease stage: stage 3 (moderate) Qualified Code(s): E11.22 - Type 2 diabetes mellitus with diabetic chronic kidney disease; N18.3 - Chronic kidney disease, stage 3 (moderate); 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 Barron is a 72 year old female who came to emergency room after having increased dyspnea with cough productive of green and yellow sputum onset 2 days earlier. She reports some discomfort in her right chest secondary to coughing. She is uncertain if she had fever. She denies hemoptysis. She was evaluated in emergency room and was felt to have right lung pneumonia. She was admitted to [facility] floor for ongoing care needs. Initial orders were written by the emergency room physician. I saw her on September 30 and performed a history and physical. She was started on Levaquin in emergency room. Lactobacillus was added. She had clinical improvement with WBC decreased to 12.4 by day of discharge and segs decreased to 79.1%. She remained afebrile during her hospital stay. She will be discharged back to [facility] and will continue with antibiotic and probiotic for 3 additional days. IV fluids were given and Cozaar was held. BUN and creatinine improved to 21 and 0.83 respectively by day of discharge with estimated GFR greater than 60. Her blood pressure remained satisfactory and she will remain off Cozaar at discharge. Magnesium level returned low at 1.4. Pantoprazole was discontinued to improve absorption. [facility]. Anemia testing showed iron 17, transferrin saturation 7%, transferrin 180, ferritin 158, B12 560, and folate > 22.3. Aspirin will be discontinued and she will be started on ferrous sulfate with ascorbic acid. There were no new problems otherwise and on October 02 she was stable for discharge back to [facility]. She will follow with Dr. Joyner. - Time Spent with Patient Total time spent providing and/or coordinating discharge services: - Discharge Medications Prescriptions: Ascorbic Acid [C-500] 500 mg PO DAILY 365 Days tablet Ferrous Sulfate 325 mg PO DAILY 365 Days tablet levoFLOXacin [Levaquin] 500 mg PO DAILY 3 Days tablet Home Medications: Acetaminophen [Tylenol] 325 mg PO Q6HR PRN 05/05/16 [History] Allopurinol [Zyloprim] 150 mg PO DAILY 05/05/16 [History] Atorvastatin [Lipitor] 10 mg PO HS 05/05/16 [History] Carbidopa/Levodopa ER 50/200 [Sinemet ER 50-200 Tab] 1 each PO TID 05/05/16 [History] HYDROcodone/Acet 5/325 mg [Henley 5-325 mg] 1 tab PO BID PRN 05/05/16 [History] Insulin ASPART [Novolog] 0 unit SQ TIDWM 05/05/16 [History] Magnesium Oxide [Magnesium] 500 mg PO BID 05/05/16 [History] Renal Vitamin [Renal Caps Softgel] 1 mg PO DAILY 05/05/16 [History] Venlafaxine HCl [Effexor Xr] 150 mg PO HS 05/05/16 [History] Dextran 70/Hypromellose [Artificial Tears Eye Drops] 1 drop OP BID 03/17/17 [History] Insulin Regular, Human [Novolin R] 6 unit SQ TID 03/17/17 [History] Metoprolol [Lopressor] 25 mg PO DAILY 03/17/17 [History] Insulin DETEMIR [Levemir] 10 unit SQ BID #0 03/18/17 [Rx] Levothyroxine [Synthroid] 100 mcg PO 0630 365 Days tablet 03/18/17 [Rx] Calcium Polycarbophil [Fiber Laxative] 625 mg PO BID 08/18/17 [History] Ammonium Lactate [Lac-Hydrin Five] 226 gm TP Q48H #0 08/21/17 [Rx] Cyanocobalamin (Vitamin B-12) [Vitamin B-12] 1,000 mcg SL QWEEK #0 08/21/17 [Rx] Furosemide [Lasix] 20 mg PO Q48H #0 08/21/17 [Rx] Ropinirole HCl [Requip] 0.25 mg PO HS 08/29/18 [History] Sennosides [Senna] 8.6 mg PO BID 08/29/18 [History] hydrOXYzine pamoate [HydrOXYzine Pamoate] 25 mg PO Q6H PRN 08/29/18 [History] Ascorbic Acid [C-500] 500 mg PO DAILY 365 Days tablet 10/02/18 [Rx] Ferrous Sulfate 325 mg PO DAILY 365 Days tablet 10/02/18 [Rx] Lactobacillus [Culturelle] 1 each PO BID 3 Days cap.sprink 10/02/18 [Rx] levoFLOXacin [Levaquin] 500 mg PO DAILY 3 Days tablet 10/02/18 [Rx] Allergies/Adverse Reactions: Allergy/AdvReac Type Severity Reaction Status Date / Time aminophylline Allergy See Verified 08/18/17 08:43 Comments Benzoate Analogues Allergy See Verified 08/18/17 08:43 Comments clavulanic acid Allergy See Verified 08/18/17 08:43 Comments colistin [From Coly-Mycin S] Allergy See Verified 08/18/17 08:43 Comments disulfiram [From Antabuse] Allergy See Verified 08/18/17 08:43 Comments Ethanolamine Allergy See Verified 08/18/17 08:43 Comments ethylenediamine Allergy See Verified 08/18/17 08:43 Comments hepatitis A virus vaccine Allergy See Verified 08/18/17 08:43 [From Twinrix] Comments hepatitis B virus vaccine, Allergy See Verified 08/18/17 08:43 recombin Comments [From Twinrix] hydrocortisone Allergy See Verified 08/18/17 08:43 [From Coly-Mycin S] Comments Slovenian encephalitis vaccine Allergy See Verified 08/29/18 19:44 [From Je-Vax] Comments Medrysone [From Liquifilm] Allergy See Verified 08/29/18 19:44 Comments Merbromin Allergy See Verified 08/29/18 19:44 Comments Mercury (Elemental) Allergy See Verified 08/29/18 19:44 Comments Neomycin [From Coly-Mycin S] Allergy See Verified 08/29/18 19:44 Comments oxymetazoline Allergy See Verified 08/29/18 19:44 [From Kev-Synephrine Comments (phenylephrine)] phenylephrine Allergy See Verified 08/29/18 19:44 [From Kev-Synephrine Comments (phenylephrine)] Piperazine Allergy See Verified 08/29/18 19:44 Comments piroxicam Allergy See Verified 08/29/18 19:44 Comments Tetanus Vaccines and Toxoid Allergy See Verified 08/29/18 19:44 [Tetanus Vaccines & Toxoid] Comments thimerosal Allergy See Verified 08/29/18 19:46 Comments Thonzonium Allergy See Verified 08/29/18 19:46 [From Coly-Mycin S] Comments Triethylenemelamine Allergy See Verified 08/29/18 19:46 Comments Amoxicillin AdvReac Abdominal Verified 08/29/18 19:46 Pain diphenhydramine AdvReac Itching Verified 08/29/18 19:46 [From Benadryl] naproxen AdvReac Abdominal Verified 08/29/18 19:46 Pain sulfamethoxazole AdvReac Abdominal Verified 08/29/18 19:46 [From Bactrim] Pain trimethoprim [From Bactrim] AdvReac Abdominal Verified 08/29/18 19:46 Pain Date of admission: 09/30/18 10:20 Primary care physician: Anthony Joyner MD - Constitutional Vitals: Temp Pulse Resp BP Pulse Ox 98.6 F 86 20 117/59 96 10/02/18 06:16 10/02/18 08:31 10/02/18 06:16 10/02/18 08:31 10/02/18 08:31 - Patient Status Disposition: Transfer SNF Condition: Good - Discharge Instructions Follow Up With: Anthony Joyner MD [Primary Care Provider] - - Diet and Activity Activity: resume usual activities as tolerated Diet: advance to your usual diet
--- NOTE | 2018-10-02 09:46 | Physician Discharge Referral ---
ExtendedCare Referral Info Transfer To: [facility] Provider in Charge: Julio Provider in Charge after Transfer: PCP Joanna) - Diagnosis (1) Pneumonia Priority: Primary Status: Acute (2) CKD (chronic kidney disease) stage 3, GFR 30-59 ml/min Priority: Secondary Status: Chronic (3) Hypothyroid Priority: Secondary Status: Chronic (4) Hypertension Priority: Secondary Status: Chronic (5) DM type 2 (diabetes mellitus, type 2) Priority: Secondary Status: Chronic (6) Hypomagnesemia Priority: Secondary Status: Acute (7) Parkinsons disease Priority: Secondary Status: Chronic (8) Anemia Priority: Secondary Status: Acute Prognosis: Good Aware of Diagnosis: Patient Aware of Prognosis: Patient - Transfer Medications Prescriptions: Ascorbic Acid [C-500] 500 mg PO DAILY 365 Days tablet Ferrous Sulfate 325 mg PO DAILY 365 Days tablet levoFLOXacin [Levaquin] 500 mg PO DAILY 3 Days tablet Home Medications: Acetaminophen [Tylenol] 325 mg PO Q6HR PRN 05/05/16 [History] Allopurinol [Zyloprim] 150 mg PO DAILY 05/05/16 [History] Atorvastatin [Lipitor] 10 mg PO HS 05/05/16 [History] Carbidopa/Levodopa ER 50/200 [Sinemet ER 50-200 Tab] 1 each PO TID 05/05/16 [History] HYDROcodone/Acet 5/325 mg [[place] 5-325 mg] 1 tab PO BID PRN 05/05/16 [History] Insulin ASPART [Novolog] 0 unit SQ TIDWM 05/05/16 [History] Magnesium Oxide [Magnesium] 500 mg PO BID 05/05/16 [History] Renal Vitamin [Renal Caps Softgel] 1 mg PO DAILY 05/05/16 [History] Venlafaxine HCl [Effexor Xr] 150 mg PO HS 05/05/16 [History] Dextran 70/Hypromellose [Artificial Tears Eye Drops] 1 drop OP BID 03/17/17 [History] Insulin Regular, Human [Novolin R] 6 unit SQ TID 03/17/17 [History] Metoprolol [Lopressor] 25 mg PO DAILY 03/17/17 [History] Insulin DETEMIR [Levemir] 10 unit SQ BID #0 03/18/17 [Rx] Levothyroxine [Synthroid] 100 mcg PO 0630 365 Days tablet 03/18/17 [Rx] Calcium Polycarbophil [Fiber Laxative] 625 mg PO BID 08/18/17 [History] Ammonium Lactate [Lac-Hydrin Five] 226 gm TP Q48H #0 08/21/17 [Rx] Cyanocobalamin (Vitamin B-12) [Vitamin B-12] 1,000 mcg SL QWEEK #0 08/21/17 [Rx] Furosemide [Lasix] 20 mg PO Q48H #0 08/21/17 [Rx] Ropinirole HCl [Requip] 0.25 mg PO HS 08/29/18 [History] Sennosides [Senna] 8.6 mg PO BID 08/29/18 [History] hydrOXYzine pamoate [HydrOXYzine Pamoate] 25 mg PO Q6H PRN 08/29/18 [History] Ascorbic Acid [C-500] 500 mg PO DAILY 365 Days tablet 10/02/18 [Rx] Ferrous Sulfate 325 mg PO DAILY 365 Days tablet 10/02/18 [Rx] Lactobacillus [Culturelle] 1 each PO BID 3 Days cap.sprink 10/02/18 [Rx] levoFLOXacin [Levaquin] 500 mg PO DAILY 3 Days tablet 10/02/18 [Rx] Allergies/Adverse Reactions: Allergy/AdvReac Type Severity Reaction Status Date / Time aminophylline Allergy See Verified 08/18/17 08:43 Comments Benzoate Analogues Allergy See Verified 08/18/17 08:43 Comments clavulanic acid Allergy See Verified 08/18/17 08:43 Comments colistin [From Coly-Mycin S] Allergy See Verified 08/18/17 08:43 Comments disulfiram [From Antabuse] Allergy See Verified 08/18/17 08:43 Comments Ethanolamine Allergy See Verified 08/18/17 08:43 Comments ethylenediamine Allergy See Verified 08/18/17 08:43 Comments hepatitis A virus vaccine Allergy See Verified 08/18/17 08:43 [From Twinrix] Comments hepatitis B virus vaccine, Allergy See Verified 08/18/17 08:43 recombin Comments [From Twinrix] hydrocortisone Allergy See Verified 08/18/17 08:43 [From Coly-Mycin S] Comments Sammarinese encephalitis vaccine Allergy See Verified 08/29/18 19:44 [From Je-Vax] Comments Medrysone [From Liquifilm] Allergy See Verified 08/29/18 19:44 Comments Merbromin Allergy See Verified 08/29/18 19:44 Comments Mercury (Elemental) Allergy See Verified 08/29/18 19:44 Comments Neomycin [From Coly-Mycin S] Allergy See Verified 08/29/18 19:44 Comments oxymetazoline Allergy See Verified 08/29/18 19:44 [From Kev-Synephrine Comments (phenylephrine)] phenylephrine Allergy See Verified 08/29/18 19:44 [From Kev-Synephrine Comments (phenylephrine)] Piperazine Allergy See Verified 08/29/18 19:44 Comments piroxicam Allergy See Verified 08/29/18 19:44 Comments Tetanus Vaccines and Toxoid Allergy See Verified 08/29/18 19:44 [Tetanus Vaccines & Toxoid] Comments thimerosal Allergy See Verified 08/29/18 19:46 Comments Thonzonium Allergy See Verified 08/29/18 19:46 [From Coly-Mycin S] Comments Triethylenemelamine Allergy See Verified 08/29/18 19:46 Comments Amoxicillin AdvReac Abdominal Verified 08/29/18 19:46 Pain diphenhydramine AdvReac Itching Verified 08/29/18 19:46 [From Benadryl] naproxen AdvReac Abdominal Verified 08/29/18 19:46 Pain sulfamethoxazole AdvReac Abdominal Verified 08/29/18 19:46 [From Bactrim] Pain trimethoprim [From Bactrim] AdvReac Abdominal Verified 08/29/18 19:46 Pain - Respiratory Orders Smoking Cessation: Smoking cessation has been advised. For more information, call the [place] Tobacco Quit Line at 2-500-OBVE-NOW. - Lab Orders Lab Orders: Other (include drug levels w/frequency) (CBC with differential, BMP, magnesium level in 1 week) - Mobility Orders Ambulate - Rehabiliation Orders Rehab Potential: Good Rehab Orders: Evaluation for Physical Therapy, Evaluation for Occupational Therapy CERTIFICATION: I certify that the transfer of the above named patient to an Extended Care Facility is necessary for the continuing treatment of the diagnosis listed. The above information is true and accurate reflection of patient's current condition. Confidential - Redisclosure prohibited without a patient's written consent.
--- NOTE | 2018-10-02 17:37 | Electrocardiograph Report ---
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
== END 2018-10-02 12:50 ==
LOC: INPPIK 08:20 → EMEROOPIK 08:20 → INPPIK 10:56
PROVIDERS: ADMIT Internal Medicine; ATTEND Internal Medicine

== ENCOUNTER 2020-09-19 11:13 | Inpatient (IN) ==
[2020-09-19 12:08] LABS: Basophils % 0.4 %; Hematocrit 36.1 % (35.3-44.9); Hemoglobin 11.6 g/dL (11.5-15.4); Immature Granulocytes % 0.1 % (0-4); Lymphocytes # 0.9 K/mcL (0.6-4.6); Lymphocytes % 13.6 %; Mean Corpuscular HGB Conc 32.1 g/dL (31.6-35.5); Mean Corpuscular Hemoglobin 33.9 pg (28.0-33.3); Mean Corpuscular Volume 105.6 fL (83.0-100.0); Mean Platelet Volume 9.6 fL (9.4-12.4); Monocytes # 1.2 K/mcL (0.0-1.3); Monocytes % 16.7 %; Neutrophils # 4.8 K/mcL (1.6-8.9); Platelet Count 226 K/mcL (140-400); Red Blood Count 3.42 M/mcL (3.82-4.97); Red Cell Distribution Width 12.6 % (11.5-14.5); Segmented Neutrophils % 69.2 %; White Blood Count 6.9 K/mcL (4.3-11.1)
[2020-09-19] MEDS ORDERED: Azithromycin 500 MG in 0.9 % Sodium Chloride 250 ML IVPB ONE (12:17)
[2020-09-19] MEDS ORDERED: methylPREDNISolone 125 MG/2 ML VIAL IVP ONE (12:17)
[2020-09-19 12:18] LABS: VBG HCO3 40 mEq/L (21-27); VBG PCO2 82 mmHg (41-51); VBG PH 7.29 pH Units (7.32-7.42); VBG PO2 57 mmHg (25-50)
[2020-09-19 12:22] LABS: BUN/Creatinine Ratio 31 (6-26); Blood Urea Nitrogen 23 mg/dL (8-23); Calcium 9.4 mg/dL (8.6-10.3); Carbon Dioxide 37 mEq/L (23-29); Chloride 93 mEq/L (98-107); Glucose 165 mg/dL (70-105); Osmolality,Calculated 289 (280-300); Sodium 136 mEq/L (136-145); eGFR For African Americans > 60 (> 60); eGFR For Non-African Americans > 60 (> 60)
[2020-09-19 12:28] LABS: Bilirubin,Urine Negative (Negative); Blood,Urine Trace-lysed (Negative); Clarity,Urine Clear (Clear); Color,Urine Yellow (Yellow); Glucose,Urine (UA) Normal (Normal); Ketones,Urine Negative (Negative); Leukocyte Esterase,Urine Negative (Negative); Nitrite,Urine Negative (Negative); Protein,Urine >=300 mg/dL (Neg-Trace); Specific Gravity,Urine 1.025 (1.010-1.025); Urobilinogen,Urine Normal (Normal)
[2020-09-19 12:34] LABS: Amorphous Sediment,Urine Many per hpf (None-Few); Mucus,Urine Few per lpf (None-Few); RBC,Urine 0-3 per hpf (0-3); Squamous Epithelial Cell,Urine Few per hpf (None-Few); Transitional Epi Cells,Urine Few per hpf (None-Few); WBC,Urine 0-3 per hpf (0-3)
[2020-09-19 13:35] LABS: ABG Base Excess 11 mEq/L (-2 to 3); ABG HCO3 39 mEq/L (21-27); ABG Oxygen Saturation 90 % (95-98); ABG PCO2 73 mmHg (35-45); ABG PH 7.34 pH Units (7.32-7.45); ABG PO2 66 mmHg (85-104); ABG TCO2 42 mEq/L (20-26); Blood Gas Pressure Support 14 cm H2O
[2020-09-19] MEDS ORDERED: Acetaminophen 325 MG TABLET PO PRN ×2 (14:22→14:36)
[2020-09-19] MEDS ORDERED: Naloxone 0.4 MG/ML INJ IVP PRN ×2 (14:22→14:36)
[2020-09-19] MEDS ORDERED: Ondansetron 4 MG/2 ML VIAL IVP PRN ×2 (14:22→14:36)
[2020-09-19] MEDS ORDERED: 0.9 % Sodium Chloride 1,000 ML IVC SCH ×2 (14:30→14:36)
[2020-09-19] MEDS ORDERED: *HR* HYDROcodone/Acet 5/325 mg TABLET PO PRN (14:36)
[2020-09-19] MEDS: Carbidopa/Levodopa ER 50/200 TABLET PO SCH ×2 (17:03→20:31)
[2020-09-19] MEDS: Ciprofloxacin OPTH Soln 2.5 ML BOTTLE LEFT EYE SCH ×2 (17:05→20:34)
[2020-09-19] MEDS ORDERED: *HR* Dextrose 50 % in Water (Vial) 50 ML VIAL IVP PRN (17:24)
[2020-09-19] MEDS ORDERED: D5% in Water 1,000 ML IVC PRN (17:24)
[2020-09-19] MEDS ORDERED: Dextrose Gel 15 GM/37.5 ML TUBE PO PRN ×2 (17:24)
[2020-09-19] MEDS: Nystatin POWDER 30 GM BOTTLE TP SCH (20:31)
[2020-09-19] MEDS: rOPINIRole 0.25 MG TABLET PO SCH (20:31)
[2020-09-19] MEDS: Sennosides 8.6 MG TABLET PO SCH (20:31)
[2020-09-19] MEDS: Venlafaxine XR (24 HR) 150 MG CAP.ER.24H PO SCH (20:31)
[2020-09-19] MEDS: Insulin LISPRO 300 UNITS/3 ML VIAL SUBQ SCH (20:32)
[2020-09-19] MEDS ORDERED: NON-FORMULARY MEDICATION 1 EACH EACH (Formoterol Fumarate [Perforomist] 20 MCG) IH SCH (21:00)
[2020-09-19 21:27] LABS: C-Reactive Protein 138 mg/L (Less than 10); Lactate Dehydrogenase 187 Units/L (140-271)
[2020-09-19 21:45] LABS: Ferritin 442 ng/mL (10-120)
[2020-09-19] MEDS: Budesonide/Formoterol 160/4.5 1 PUFF INH IH SCH (21:48)
[2020-09-19 21:52] LABS: Estimated Average Glucose 123 mg/dl; Hemoglobin A1C 5.9 %
[2020-09-19] MEDS ORDERED: Budesonide Neb 0.25 MG/2 ML IH SCH (22:00)
[2020-09-19] MEDS ORDERED: Budesonide/Formoterol 160/4.5 1 PUFF INH IH SCH (22:00)
[2020-09-20] MEDS: Ciprofloxacin OPTH Soln 2.5 ML BOTTLE LEFT EYE SCH ×4 (03:59→21:08)
[2020-09-20] MEDS: *HR* Enoxaparin 40 MG/0.4 ML SYRINGE SQ SCH (05:26)
[2020-09-20] MEDS ORDERED: *HR* Enoxaparin 40 MG/0.4 ML SYRINGE SQ SCH (06:00)
[2020-09-20 06:51] LABS: Basophils % 0.2 %; Hematocrit 34.5 % (35.3-44.9); Immature Granulocytes % 0.8 % (0-4); Lymphocytes # 0.6 K/mcL (0.6-4.6); Lymphocytes % 11.7 %; Mean Corpuscular HGB Conc 31.9 g/dL (31.6-35.5); Mean Corpuscular Hemoglobin 33.6 pg (28.0-33.3); Mean Corpuscular Volume 105.5 fL (83.0-100.0); Mean Platelet Volume 9.8 fL (9.4-12.4); Monocytes # 0.2 K/mcL (0.0-1.3); Monocytes % 3.7 %; Neutrophils # 4.3 K/mcL (1.6-8.9); Platelet Count 212 K/mcL (140-400); Red Blood Count 3.27 M/mcL (3.82-4.97); Red Cell Distribution Width 12.5 % (11.5-14.5); Segmented Neutrophils % 83.6 %; White Blood Count 5.2 K/mcL (4.3-11.1)
[2020-09-20 07:18] LABS: BUN/Creatinine Ratio 31 (6-26); Blood Urea Nitrogen 19 mg/dL (8-23); Calcium 8.8 mg/dL (8.6-10.3); Carbon Dioxide 40 mEq/L (23-29); Chloride 95 mEq/L (98-107); Glucose 179 mg/dL (70-105); Magnesium 1.5 mg/dL (1.6-2.6); Osmolality,Calculated 293 (280-300); Potassium 4.1 mEq/L (3.5-5.1); Sodium 138 mEq/L (136-145); eGFR For African Americans > 60 (> 60); eGFR For Non-African Americans > 60 (> 60)
[2020-09-20 07:30] LABS: Troponin I < 0.03 ng/mL (< 0.04)
[2020-09-20] MEDS ORDERED: Dexamethasone 4 MG/ML VIAL IVP SCH (09:00)
[2020-09-20] MEDS ORDERED: allopurinoL 100 MG TABLET PO SCH (09:00)
[2020-09-20] MEDS: Insulin DETEMIR 100 UNIT/ML X5UNITS SUBQ SCH (09:06)
[2020-09-20] MEDS: Insulin LISPRO 300 UNITS/3 ML VIAL SUBQ SCH ×4 (09:06→21:00)
[2020-09-20] MEDS: lisinopriL 5 MG TABLET PO SCH (09:09)
[2020-09-20] MEDS: rOPINIRole 0.25 MG TABLET PO SCH ×2 (09:09→21:08)
[2020-09-20] MEDS: Sennosides 8.6 MG TABLET PO SCH ×2 (09:10→21:08)
[2020-09-20] MEDS: Carbidopa/Levodopa ER 50/200 TABLET PO SCH ×3 (09:10→21:08)
[2020-09-20] MEDS: Furosemide 20 MG TABLET PO SCH (09:10)
[2020-09-20] MEDS: Dexamethasone 4 MG/ML VIAL IVP SCH (09:11)
[2020-09-20] MEDS: Nystatin POWDER 30 GM BOTTLE TP SCH ×2 (09:31→21:09)
[2020-09-20] MEDS: Budesonide/Formoterol 160/4.5 1 PUFF INH IH SCH ×2 (10:26→21:21)
[2020-09-20] MEDS ORDERED: Furosemide 20 MG/2 ML VIAL IVP ONE ×2 (10:33→11:30)
[2020-09-20] MEDS ORDERED: Azithromycin 500 MG in 0.9 % Sodium Chloride 250 ML IVPB SCH (15:00)
[2020-09-20] MEDS: Azithromycin 500 MG in 0.9 % Sodium Chloride 250 ML IVPB SCH (16:46)
[2020-09-20] MEDS: Venlafaxine XR (24 HR) 150 MG CAP.ER.24H PO SCH (21:08)
[2020-09-21] MEDS: Ciprofloxacin OPTH Soln 2.5 ML BOTTLE LEFT EYE SCH ×4 (06:20→21:58)
[2020-09-21] MEDS: *HR* Enoxaparin 40 MG/0.4 ML SYRINGE SQ SCH (06:20)
[2020-09-21 08:09] LABS: Hematocrit 38.1 % (35.3-44.9); Hemoglobin 12.5 g/dL (11.5-15.4); Mean Corpuscular HGB Conc 32.8 g/dL (31.6-35.5); Mean Corpuscular Hemoglobin 33.7 pg (28.0-33.3); Mean Corpuscular Volume 102.7 fL (83.0-100.0); Mean Platelet Volume 9.2 fL (9.4-12.4); Platelet Count 232 K/mcL (140-400); Red Blood Count 3.71 M/mcL (3.82-4.97)
[2020-09-21 08:41] LABS: BUN/Creatinine Ratio 32 (6-26); Blood Urea Nitrogen 18 mg/dL (8-23); Calcium 9.3 mg/dL (8.6-10.3); Carbon Dioxide 45 mEq/L (23-29); Chloride 90 mEq/L (98-107); Glucose 80 mg/dL (70-105); Osmolality,Calculated 287 (280-300); Sodium 138 mEq/L (136-145); eGFR For African Americans > 60 (> 60); eGFR For Non-African Americans > 60 (> 60)
[2020-09-21] MEDS: Dexamethasone 4 MG/ML VIAL IVP SCH (08:42)
[2020-09-21] MEDS: lisinopriL 5 MG TABLET PO SCH ×2 (08:42→11:50)
[2020-09-21] MEDS: Sennosides 8.6 MG TABLET PO SCH ×2 (08:45→21:55)
[2020-09-21] MEDS: rOPINIRole 0.25 MG TABLET PO SCH ×2 (08:45→21:55)
[2020-09-21] MEDS: Nystatin POWDER 30 GM BOTTLE TP SCH ×2 (08:45→21:59)
[2020-09-21] MEDS: Carbidopa/Levodopa ER 50/200 TABLET PO SCH ×3 (08:46→21:55)
[2020-09-21] MEDS: Insulin DETEMIR 100 UNIT/ML X5UNITS SUBQ SCH (08:47)
[2020-09-21] MEDS: Insulin LISPRO 300 UNITS/3 ML VIAL SUBQ SCH ×4 (08:47→21:48)
[2020-09-21] MEDS: allopurinoL 300 MG TABLET PO SCH (08:48)
[2020-09-21] MEDS: acetaZOLAMIDE 250 MG TABLET PO SCH (10:13)
[2020-09-21] MEDS: Budesonide/Formoterol 160/4.5 1 PUFF INH IH SCH ×2 (10:31→20:57)
[2020-09-21] MEDS: Azithromycin 500 MG in 0.9 % Sodium Chloride 250 ML IVPB SCH (15:48)
[2020-09-21] MEDS: Venlafaxine XR (24 HR) 150 MG CAP.ER.24H PO SCH (21:55)
[2020-09-22] MEDS: Ciprofloxacin OPTH Soln 2.5 ML BOTTLE LEFT EYE SCH ×3 (03:35→17:33)
[2020-09-22] MEDS: *HR* Enoxaparin 40 MG/0.4 ML SYRINGE SQ SCH (06:20)
[2020-09-22] MEDS: Insulin LISPRO 300 UNITS/3 ML VIAL SUBQ SCH ×4 (07:30→21:28)
[2020-09-22] MEDS: Furosemide 20 MG TABLET PO SCH (08:27)
[2020-09-22] MEDS: Dexamethasone 4 MG/ML VIAL IVP SCH (08:27)
[2020-09-22] MEDS: allopurinoL 300 MG TABLET PO SCH (08:27)
[2020-09-22] MEDS: Carbidopa/Levodopa ER 50/200 TABLET PO SCH ×3 (08:27→21:28)
[2020-09-22] MEDS: lisinopriL 5 MG TABLET PO SCH (08:27)
[2020-09-22] MEDS: rOPINIRole 0.25 MG TABLET PO SCH ×2 (08:27→21:28)
[2020-09-22] MEDS: Sennosides 8.6 MG TABLET PO SCH ×2 (08:27→21:28)
[2020-09-22] MEDS: acetaZOLAMIDE 250 MG TABLET PO SCH (08:27)
[2020-09-22] MEDS: Insulin DETEMIR 100 UNIT/ML X5UNITS SUBQ SCH (08:28)
[2020-09-22] MEDS: Nystatin POWDER 30 GM BOTTLE TP SCH ×2 (08:28→21:30)
[2020-09-22 09:05] LABS: Hematocrit 40.7 % (35.3-44.9); Hemoglobin 13.5 g/dL (11.5-15.4); Mean Corpuscular HGB Conc 33.2 g/dL (31.6-35.5); Mean Corpuscular Hemoglobin 33.7 pg (28.0-33.3); Mean Corpuscular Volume 101.5 fL (83.0-100.0); Mean Platelet Volume 9.2 fL (9.4-12.4); Platelet Count 269 K/mcL (140-400); Red Blood Count 4.01 M/mcL (3.82-4.97); Red Cell Distribution Width 11.9 % (11.5-14.5); White Blood Count 9.7 K/mcL (4.3-11.1)
[2020-09-22 09:25] LABS: BUN/Creatinine Ratio 29 (6-26); Blood Urea Nitrogen 19 mg/dL (8-23); Calcium 9.3 mg/dL (8.6-10.3); Carbon Dioxide 39 mEq/L (23-29); Chloride 93 mEq/L (98-107); Glucose 101 mg/dL (70-105); Osmolality,Calculated 284 (280-300); Potassium 3.6 mEq/L (3.5-5.1); Sodium 136 mEq/L (136-145); eGFR For African Americans > 60 (> 60); eGFR For Non-African Americans > 60 (> 60)
[2020-09-22] MEDS: Budesonide/Formoterol 160/4.5 1 PUFF INH IH SCH ×2 (10:09→21:02)
[2020-09-22] MEDS: Azithromycin 500 MG in 0.9 % Sodium Chloride 250 ML IVPB SCH (17:32)
[2020-09-22] MEDS: Venlafaxine XR (24 HR) 150 MG CAP.ER.24H PO SCH (21:28)
[2020-09-23] MEDS ORDERED: *HR* LORazepam 0.5 MG TABLET PO ONE (00:08)
[2020-09-23] MEDS: *HR* Enoxaparin 40 MG/0.4 ML SYRINGE SQ SCH (05:45)
[2020-09-23] MEDS: Budesonide/Formoterol 160/4.5 1 PUFF INH IH SCH ×2 (07:59→22:39)
[2020-09-23] MEDS: Insulin LISPRO 300 UNITS/3 ML VIAL SUBQ SCH ×4 (08:18→23:32)
[2020-09-23] MEDS: allopurinoL 300 MG TABLET PO SCH (08:25)
[2020-09-23] MEDS: Sennosides 8.6 MG TABLET PO SCH ×2 (08:25→21:40)
[2020-09-23] MEDS: Azithromycin 250 MG TABLET PO SCH (08:26)
[2020-09-23] MEDS: rOPINIRole 0.25 MG TABLET PO SCH ×2 (08:26→21:40)
[2020-09-23] MEDS: lisinopriL 5 MG TABLET PO SCH (08:26)
[2020-09-23] MEDS: acetaZOLAMIDE 250 MG TABLET PO SCH (08:26)
[2020-09-23] MEDS: Carbidopa/Levodopa ER 50/200 TABLET PO SCH ×3 (08:26→21:40)
[2020-09-23] MEDS: Insulin DETEMIR 100 UNIT/ML X5UNITS SUBQ SCH (08:27)
[2020-09-23] MEDS: Nystatin POWDER 30 GM BOTTLE TP SCH ×2 (08:27→21:41)
[2020-09-23] MEDS ORDERED: dexAMETHasone 4 MG TABLET PO STA ×2 (10:17→10:58)
[2020-09-23] MEDS ORDERED: Ondansetron ODT 4 MG TAB.RAPDIS SL PRN (10:27)
[2020-09-23] MEDS: Dexamethasone 4 MG/ML VIAL IVP SCH (10:45)
[2020-09-23] MEDS: Venlafaxine XR (24 HR) 150 MG CAP.ER.24H PO SCH (21:40)
[2020-09-24] MEDS: *HR* Enoxaparin 40 MG/0.4 ML SYRINGE SQ SCH (07:06)
[2020-09-24] MEDS: Insulin LISPRO 300 UNITS/3 ML VIAL SUBQ SCH ×3 (08:13→17:53)
[2020-09-24] MEDS ORDERED: Isovue-370 500 ML BOTTLE IVP ONE (09:07)
[2020-09-24 09:17] LABS: C-Reactive Protein 24 mg/L (Less than 10)
[2020-09-24 09:35] LABS: Ferritin 418 ng/mL (10-120)
[2020-09-24] MEDS ORDERED: Dexamethasone 4 MG/ML VIAL IVP SCH (09:53)
[2020-09-24 10:04] LABS: Basophils % 0.3 %; Hemoglobin 13.5 g/dL (11.5-15.4); Immature Granulocytes % 2.4 % (0-4); Lymphocytes # 0.9 K/mcL (0.6-4.6); Lymphocytes % 14.4 %; Mean Corpuscular HGB Conc 33.8 g/dL (31.6-35.5); Mean Corpuscular Hemoglobin 33.5 pg (28.0-33.3); Mean Corpuscular Volume 99.3 fL (83.0-100.0); Mean Platelet Volume 10.6 fL (9.4-12.4); Monocytes # 0.4 K/mcL (0.0-1.3); Monocytes % 6.6 %; Neutrophils # 4.9 K/mcL (1.6-8.9); Platelet Count 213 K/mcL (140-400); Red Blood Count 4.03 M/mcL (3.82-4.97); Red Cell Distribution Width 11.8 % (11.5-14.5); Segmented Neutrophils % 76.3 %; White Blood Count 6.4 K/mcL (4.3-11.1)
[2020-09-24 10:21] LABS: BUN/Creatinine Ratio 62 (6-26); Blood Urea Nitrogen 44 mg/dL (8-23); Calcium 9.1 mg/dL (8.6-10.3); Carbon Dioxide 33 mEq/L (23-29); Chloride 93 mEq/L (98-107); Glucose 171 mg/dL (70-105); Osmolality,Calculated 291 (280-300); Potassium 3.9 mEq/L (3.5-5.1); Sodium 133 mEq/L (136-145); eGFR For African Americans > 60 (> 60); eGFR For Non-African Americans > 60 (> 60)
[2020-09-24] MEDS: Budesonide/Formoterol 160/4.5 1 PUFF INH IH SCH (10:32)
[2020-09-24] MEDS: rOPINIRole 0.25 MG TABLET PO SCH (10:38)
[2020-09-24] MEDS: Carbidopa/Levodopa ER 50/200 TABLET PO SCH ×2 (10:39→17:02)
[2020-09-24] MEDS: Azithromycin 250 MG TABLET PO SCH (10:39)
[2020-09-24] MEDS: allopurinoL 300 MG TABLET PO SCH (10:39)
[2020-09-24] MEDS: Insulin DETEMIR 100 UNIT/ML X5UNITS SUBQ SCH (10:39)
[2020-09-24] MEDS: Furosemide 20 MG TABLET PO SCH (10:39)
[2020-09-24] MEDS: Sennosides 8.6 MG TABLET PO SCH (10:39)
[2020-09-24] MEDS: lisinopriL 5 MG TABLET PO SCH (10:39)
[2020-09-24] MEDS: acetaZOLAMIDE 250 MG TABLET PO SCH (10:40)
[2020-09-24] MEDS: Nystatin POWDER 30 GM BOTTLE TP SCH (10:40)
[2020-09-24 10:50] LABS: Platelet Estimate Normal (Normal)
[2020-09-24 15:31] VITALS: BP 129/70
== END 2020-09-24 18:13 | DRG 177 ==
LOC: EMEROOPIK 11:13 → INPPIK 14:32
PROVIDERS: ADMIT Family Medicine; ATTEND Family Medicine